=== PATIENT | male | born 1990 | race Caucasian/White ===

== ENCOUNTER 2023-03-26 02:47 | Emergency (ER) | payer MEDICARE, SELFPAY ==
[2023-03-26 02:55] VITALS: BP 127/69; PULSE 86; RESP 16; TEMP 36.6; O2SAT 96; BMI 24.3
--- NOTE | 2023-03-26 03:05 | ED.MALEGU1 ---
HPI - Male Genitourinary General Chief complaint: Urogenital-Male Time Seen by Provider: 03/26/23 02:52 Source: patient Mode of arrival: walk-in Limitations: no limitations History of Present Illness HPI Narrative: the patient presented to us with burning with urination as well as frequency after being exposed to partner who was diagnosed with STD The patient denies any fever or abdominal pain or any other concerns he also had a similar presentation a month ago after being exposed to the same partner Review of systems otherwise negative Related Data Home Medications Medication Instructions Recorded Confirmed venlafaxine 75 mg capsule,extended mg PO 03/26/23 release 24 hr Allergies Allergy/AdvReac Type Severity Reaction Status Date / Time doxycycline Allergy Mild Verified 03/26/23 02:59 Review of Systems ROS Status of ROS 10 or more systems reviewed and unremarkable except as noted in history and below Exam Narrative Exam Narrative: Nurses notes and vital signs reviewed and patient is not hypoxic. General: Well-appearing and in no apparent distress. Skin: Warm, dry, no pallor noted. No rash. Head: Normocephalic, atraumatic. Neck: Supple, non-tender. Eye: Pupils are equal, round and EOMI. No scleral icterus. Ears, Nose, Mouth, and Throat: TM are clear, no nasal mucosal hypertrophy. Oral mucosa is moist, no posterior oropharynx erythema, uvula is mid-line Cardiovascular: Regular Rate and Rhythm without murmur, gallop or rub. Respiratory: No accessory muscle use or respiratory distress. Lungs are clear to auscultation, no wheezing, rales or rhonchi Chest Wall: no tenderness Back: No midline thoracic or lumbar vertebral tenderness. No CVA tenderness Musculoskeletal: normal ROM, no calf or popliteal tenderness, no lower extremity edema/swelling GI: Abdomen is soft, non-distended. Normal bowel sounds. No masses appreciated. No tenderness to palpation. No rebound, guarding, or rigidity noted. Neurological: A&O x4. No cranial nerve dysfunction observed. No truncal ataxia. Moves all extremities. Sensation intact. Psychiatric: Cooperative and interactive. Normal mood and affect. Constitutional Vital Signs - 24 hr 03/26/23 02:55 Temperature 97.9 F Pulse Rate [Monitor] 86 Respiratory Rate 16 Blood Pressure [Right Arm] 127/69 H Pulse Oximetry 96 Oxygen Delivery Method Room Air Course Vital Signs Vital signs: Vital Signs Temperature 97.9 F 03/26/23 02:55 Pulse Rate 86 03/26/23 02:55 Respiratory Rate 16 03/26/23 02:55 Blood Pressure 127/69 H 03/26/23 02:55 Pulse Oximetry 96 03/26/23 02:55 Oxygen Delivery Method Room Air 03/26/23 02:55 Temperature 97.9 F 03/26/23 02:55 Pulse Rate 86 03/26/23 02:55 Respiratory Rate 16 03/26/23 02:55 Blood Pressure 127/69 H 03/26/23 02:55 Pulse Oximetry 96 03/26/23 02:55 Oxygen Delivery Method Room Air 03/26/23 02:55 MDM - Male Genitourinary MDM Narrative Medical decision making narrative: the patient was now is presenting to us with urethritis after being exposed to see the he will be treated due to his history with the ceftriaxone and azithromycin due to ALLERGY to doxycycline The patient is to followup with primary care physician in next 2-3 days or to return to the emergency department should any of the signs or symptoms worsen or new symptoms develop. The patient agrees with the following Diagnosis and Treatment plan and the patient will be discharged home. Discharge Plan Discharge Chief Complaint: Urogenital-Male Clinical Impression: Urethritis Patient Disposition: Home, Self-Care Time of Disposition Decision: 03:25 Mode of Transportation: Private Vehicle Prescriptions / Home Meds: No Action venlafaxine 75 mg capsule,extended release 24hr PO Instructions: Nonspecific Urethritis in Men (ED) Stand Alone Forms: Portal Instructions Referrals: Physician,Non-Staff, MD [Primary Care Provider] - 1 week
[2023-03-26] MEDS: CEFTRIAXONE 500 MG VIAL IM (03:34)
[2023-03-26] MEDS: AZITHROMYCIN 250 MG TABLET 1000 MG PO (03:34)
== END 2023-03-26 03:45 | disposition home or self-care (01) ==
PROVIDERS: Emergency Provider Emergency Medicine
DX: N34.2 Other urethritis (principal)
CPT/HCPCS: 96372; 99284

== ENCOUNTER 2023-05-26 16:47 | Emergency (ER) | payer MEDICARE, SELFPAY ==
[2023-05-26 16:50] VITALS: BP 137/73; PULSE 87; RESP 16; TEMP 36.8; O2SAT 97; BMI 24.0
--- NOTE | 2023-05-26 17:21 | ED.MALEGU1 ---
HPI - Male Genitourinary General Chief complaint: Urogenital-Male Stated complaint: STD? Time Seen by Provider: 05/26/23 16:57 Source: patient Mode of arrival: walk-in Limitations: no limitations History of Present Illness HPI Narrative: patient had a single time recently in which he did not wear a condom, slept with his significant other and now has urethral discharge. he suspects that he has contracted an STD. No groin pain, fever or skin rash. Related Data Home Medications Medication Instructions Recorded Confirmed venlafaxine 75 mg capsule,extended mg PO 03/26/23 release 24 hr Allergies Allergy/AdvReac Type Severity Reaction Status Date / Time doxycycline Allergy Mild Verified 03/26/23 02:59 Exam Narrative Exam Narrative: Nurses notes and vital signs reviewed and patient is not hypoxic. afebrile General: Well-appearing and in no apparent distress. Skin: Warm, dry, no pallor noted. No rash to the groin or genitalia. Eye: Pupils are equal, round and EOMI. No scleral icterus. Cardiovascular: normal peripheral perfusion Respiratory: No accessory muscle use or respiratory distress. GI: Abdomen is soft, non-distended. No inguinal masses appreciated. No tenderness to palpation. No rebound, guarding, or rigidity noted. Genital: Normal appearing male genitalia. No penile or scrotal lesions. No blood or discharge noted at the urethral meatus. Neurological: A&O x4. No truncal ataxia. Moves all extremities. Sensation intact. Psychiatric: Cooperative and interactive. Normal mood and affect. Constitutional Vital Signs, click to edit/add: Last Vital Signs Temp 98.3 F 05/26/23 16:50 Pulse 87 05/26/23 16:50 Resp 16 05/26/23 16:50 BP 137/73 05/26/23 16:50 Pulse Ox 97 05/26/23 16:50 O2 Del Method Room Air 05/26/23 16:50 Course Vital Signs Vital signs: Vital Signs Temperature 98.3 F 05/26/23 16:50 Pulse Rate 87 05/26/23 16:50 Respiratory Rate 16 05/26/23 16:50 Blood Pressure 137/73 05/26/23 16:50 Pulse Oximetry 97 05/26/23 16:50 Oxygen Delivery Method Room Air 05/26/23 16:50 Temperature 98.3 F 05/26/23 16:50 Pulse Rate 87 05/26/23 16:50 Respiratory Rate 16 05/26/23 16:50 Blood Pressure 137/73 05/26/23 16:50 Pulse Oximetry 97 05/26/23 16:50 Oxygen Delivery Method Room Air 05/26/23 16:50 MDM - Male Genitourinary MDM Narrative Medical decision making narrative: I obtained a urethral culture swab and sent to the lab for testing. results will take several days so the patient was prophylactically treated with IM Rocephin and oral azithromycin. He was instructed to avoid intercourse for the next 7 days and encouraged to use a condom moving forward. Discharge Plan Discharge Chief Complaint: Urogenital-Male Clinical Impression: Urethritis Patient Disposition: Home, Self-Care Time of Disposition Decision: 17:25 Prescriptions / Home Meds: No Action venlafaxine 75 mg capsule,extended release 24hr PO Instructions: Sexually Transmitted Diseases (ED), Male Condom Use (ED), Nonspecific Urethritis in Men (ED) Stand Alone Forms: Portal Instructions Referrals: Physician,Non-Staff, MD [Primary Care Provider] - 1 week
[2023-05-26] MEDS: AZITHROMYCIN 250 MG TABLET 1000 MG PO (17:27)
[2023-05-26] MEDS: CEFTRIAXONE 250 MG, WATER FOR INJECTION,STERILE 0.9 ML IM (17:28)
[2023-05-30 08:17] LABS: Neisseria gonorrhoeae, NAA Negative (Negative)
== END 2023-05-26 17:38 | disposition home or self-care (01) ==
PROVIDERS: Emergency Provider Emergency Medicine
DX: N34.2 Other urethritis (principal)
CPT/HCPCS: 87491; 87591; 96374; 99284

== ENCOUNTER 2023-11-17 21:45 | Emergency (ER) | payer MEDICARE, SELFPAY ==
[2023-11-17 21:52] VITALS: BP 121/70; PULSE 102; RESP 18; TEMP 37.4; O2SAT 98; BMI 24.8
--- NOTE | 2023-11-17 21:57 | PC.NURSE ---
Patient reports burining with urination and intermittent penile drainage of clear/white color.
--- NOTE | 2023-11-17 22:15 | ED.MALEGU1 ---
HPI - Male Genitourinary General Chief complaint: Urogenital-Male Stated complaint: POSS STD Time Seen by Provider: 11/17/23 21:58 Source: patient Mode of arrival: walk-in History of Present Illness HPI Narrative: Male presents with urethral pain on urination and urethral discharge for the last 2 days. No fever or vomiting. No sores on the penis or scrotum. No blood in urine. He suspects that his girlfriend is cheating on him. he said that he has had STDs in the past with the same partner. He does not use condoms. Related Data Home Medications Medication Instructions Recorded Confirmed venlafaxine 75 mg capsule,extended 75 mg PO DAILY 03/26/23 11/17/23 release 24 hr Previous Rx's Medication Instructions Recorded azithromycin 250 mg tablet 1,000 mg (4 x 250 mg) PO ONCE #4 11/17/23 tabs Allergies Allergy/AdvReac Type Severity Reaction Status Date / Time doxycycline Allergy Mild Verified 11/17/23 21:51 Exam Narrative Exam Narrative: Nurses notes and vital signs reviewed and patient is not hypoxic. afebrile General: Well-appearing and in no apparent distress. Skin: Warm, dry, no pallor noted. Eye: Pupils are equal, round and EOMI. No scleral icterus. Cardiovascular: Normal peripheral perfusion. Respiratory: No accessory muscle use or respiratory distress. GI: Abdomen is soft, non-distended. Normal bowel sounds. No masses appreciated. No tenderness to palpation. No rebound, guarding, or rigidity noted. Genital: normal male external genitalia. No penile swelling or lesions. No inguinal lymphadenopathy. No urethral laceration, abrasion or discharge on exam. Neurological: A&O x4. No cranial nerve dysfunction observed. No truncal ataxia. Moves all extremities. Sensation intact. Psychiatric: Cooperative and interactive. Normal mood and affect. Constitutional Vital Signs, click to edit/add: Last Vital Signs Temp 99.3 F 11/17/23 21:52 Pulse 102 H 11/17/23 21:52 Resp 18 11/17/23 21:52 BP 121/70 11/17/23 21:52 Pulse Ox 98 11/17/23 21:52 O2 Del Method Room Air 11/17/23 21:52 Course Vital Signs Vital signs: Vital Signs Temperature 99.3 F 11/17/23 21:52 Pulse Rate 102 H 11/17/23 21:52 Respiratory Rate 18 11/17/23 21:52 Blood Pressure 121/70 11/17/23 21:52 Pulse Oximetry 98 11/17/23 21:52 Oxygen Delivery Method Room Air 11/17/23 21:52 Temperature 99.3 F 11/17/23 21:52 Pulse Rate 102 H 11/17/23 21:52 Respiratory Rate 18 11/17/23 21:52 Blood Pressure 121/70 11/17/23 21:52 Pulse Oximetry 98 11/17/23 21:52 Oxygen Delivery Method Room Air 11/17/23 21:52 MDM - Male Genitourinary MDM Narrative Medical decision making narrative: urine obtained by triage nurse - sent to the lab for testing for GC and chlamydia. Patient received IM Rocephin and discharged home with prescription for azithromycin 1gm to be filled in the morning and taken orally. Instructed to not have sex for one week and to use a condom with his partner as this keeps occurring. PCP follow up. Discharge Plan Discharge Chief Complaint: Urogenital-Male Clinical Impression: Potential exposure to STD, Urethritis Patient Disposition: Home, Self-Care Time of Disposition Decision: 22:17 Prescriptions / Home Meds: New azithromycin 250 mg tablet 1,000 mg PO ONCE Qty: 4 0RF Rx Instructions: four 250mg tabs taken orally once No Action venlafaxine 75 mg capsule,extended release 24hr 75 mg PO DAILY Instructions: Sexually Transmitted Diseases (ED) Stand Alone Forms: Portal Instructions Referrals: Physician,Non-Staff, MD [Primary Care Provider] - 1 week
[2023-11-17] MEDS: CEFTRIAXONE 250 MG, WATER FOR INJECTION,STERILE 0.9 ML IM (23:02)
[2023-11-21 01:07] LABS: Neisseria gonorrhoeae, NAA Negative (Negative)
== END 2023-11-17 23:07 | disposition home or self-care (01) ==
PROVIDERS: Emergency Provider Emergency Medicine
DX: N34.2 Other urethritis (principal); Z20.2 Contact with and (suspected) exposure to infections with a predominantly sexual mode of transmission
CPT/HCPCS: 87491; 87591; 96372; 99284; J0696

== ENCOUNTER 2024-05-08 21:20 | Emergency (ER) | payer MEDICARE, SELFPAY ==
--- OUTSIDE RECORDS SUMMARY | 2024-05-08 21:25 | XMS_ITS | CCD ---
Author Organization [facility] Inform ion Partnership [facility] Care Team Providers Care Mail Technician Name Role Phone Conchita Mancia MD Primary Care Provider DR ESTEFANI OCONNELL Primary Care Unavailable BHAKTI PINEDA Attending Unavailable BHAKTI PINEDA Consulting Unavailable BHAKTI PINEDA Admitting Unavailable CONCHITA MANCIA Primary Care Unavailable NAM GARCIA Attending Unavailable Naomi Cortez Primary Care Provide r NO, PHYSICIAN Primary Care Unavailable NIKO MOLINA Attending Unavailable Allergies Allergy Classification Reported Allergen(s) Allergy Type Date of Onset Reaction(s) Facility (3 sources) Doxycycline; Translations: [DOXYCYCLINE] Drug Allergy 0 [facility] (1 source) Doxycycline Drug Allergy [facility] Repository Medications Current Medications Medication Drug Class(es) Dates Sig (Normalized) Sig (Original) ibuprofen 800 mg oral tablet (1 source) Nonsteroidal Anti-inflammatory Drug Start: 09-03-2023 End: 11-28-2023 take 1 tablet by mouth every six hours as needed for pain ibuprofen (MOTRIN) 800 mg tablet Take 1 tablet (800 mg total) by mouth every 6 (six) hours as needed for pain. 30 tablet 0 09/03/2023 11/28/2023 Discontinued ondansetron 4 mg disintegrating oral tablet (1 source) Serotonin-3 Receptor Antagonist Start: 07-31-2022 End: 11-28-2023 take 1 tablet by mouth every eight hours as needed for nausea ondansetron ODT (ZOFRAN ODT) 4 mg disintegrating tablet Dissolve 1 tablet (4 mg total) on tongue every 8 (eight) hours as needed for nausea for up to 12 doses. 12 tablet 0 07/31/2022 11/28/2023 Discontinued 24 hr venlafaxine 75 mg extended release oral capsule (3 sources) Serotonin and Norepinephrine Reuptake Inhibitor Start: 09-02-2021 End: 11-28-2023 take 1 capsule by mouth once daily venlafaxine (EFFEXOR XR) 75 MG extended release capsule Take 1 capsule by mouth daily 30 capsule 0 12/24/2021 01/23/2022 Active Problems Active Problems Problem Classification Problem Date Documented Date Episodic/Chronic Administrative/social admission (1 source) Repeated prescription; Translations: [Encounter for issue of repeat prescription] Episodic Cardiac dysrhythmias (1 source) Palpitations; Translations: [Palpitations] 11-28-2023 Episodic Genitourinary symptoms and ill-defined conditions (4 sources) Urethral discharge, unspecified; Translations: [URETHRAL DISCHARGE UNSPECIFIED] Onset: 02-25-2023 Episodic Immunizations and screening for infectious disease (1 source) Contact with and (suspected) exposure to infections with a predominantly sexual mode of transmission; Translations: [Contact with and (suspected) exposure to infections with a predominantly sexual mode of transmission] Onset: 10-24-2023 Episodic Nonspecific chest pain (1 source) Chest pain; Translations: [Chest pain, unspecified] 11-28-2023 Episodic Other lower respiratory disease (1 source) Dyspnea on exertion; Translations: [Other forms of dyspnea] 11-28-2023 Episodic Substance-related disorders (1 source) Nicotine dependence, cigarettes, uncomplicated; Translations: [NICOTINE DEPEND CIGARETTES UNCOMP] Onset: 02-27-2023 Chronic Urinary tract infections (2 sources) Other urethritis; Translations: [Other urethritis] Onset: 01-21-2024 Episodic Past or Other Problems Problem Classification Problem Date Documented Da te Episodic/Chronic Unclassified (1 source) Onset: 11-28-2023 11-28-2023 Results Test Name Value Interpretation Reference Range Facil ity Chlamydia/GC DNA, Uron 10-25 Chlamydia Probe, Ur Negative Normal NEG [facility] Comment on above: Result Comment: CHLA MYDIA TRACHOMATIS DNA not detected by nucleic acid amplification. This test is intended for medical purposes only and is not valid for the evaluation of suspected sexual abuse or for other forensic purposes. In certain contexts, culture may be required to meet applicable laws and regulations for diagnosis of C. trachomatis and N. gonorrhoeae infections. Per 2014 CDC recommendations, this test does not include confirmation of positive results by an alternative nucleic acid target. Performed By: #### U CGP #### [id number] [place] [address] [employer] Tender: Felice Russ MD Gonorrhea Probe, Ur Negative Normal NEG [facility] Comment on above: Result Comment: NEIS SERIA GONORRHOEAE DNA not detected by nucleic acid amplification. This test is intended for medical purposes only and is not valid for the evaluation of suspected sexual abuse or for other forensic purposes. In certain contexts, culture may be required to meet applicable laws and regulations for diagnosis of C. trachomatis and N. gonorrhoeae infections. Per 2014 CDC recommendations, this test does not include confirmation of positive results by an alternative nucleic acid target. Performed By: #### U CGP #### [id number] [place] [address] [employer] Tender: Felice Russ MD Urinalysis w/ Microon 2023 Bacteria TRACE Abnormal NONE [facility] Comment on above: Performed By: #### U AMIC #### [facility] [address] [place] [address] [address] [place], [place] [id number] [employer] Tender: Niko Garcia MD Bilirubin, SemiQt,Ur Negative Normal NEG [facility] Comment on above: Performed By: #### U AMIC #### [facility] [address] [place] [address] [place] [address] [employer] Tender: Niko Garcia MD Blood, Urine Negative Normal NEG [facility] Comment on above: Performed By: #### U AMIC #### [facility] [address] [place], [place] [id number] [employer] Tender: Niko Garcia MD Clarity (U) Clear Normal CLEAR [facility] Comment on above: Performed By: #### U AMIC #### [facility] [address] [place], [place] [id number] [employer] Tender: Niko Garcia MD Color (U) Yellow Normal YEL [facility] Comment on above: Performed By: #### U AMIC #### [facility] [address] [place] [address] Dr. [place], [place] [id number] [employer] Tender: Niko Garcia MD Epithelial cells LM Ql (Urine sed) None Normal 0-5 [facility] Comment on above: Performed By: #### U AMIC #### [facility] [address] [place] [address] Dr. [place], [place] [id number] [employer] Tender: Niko Garcia MD Glucose Ql (U) Negative Normal NEG [facility] Comment on above: Performed By: #### U AMIC #### [facility] [address] [place] [address] Dr. [place], [place] [id number] [employer] Tender: Niko Garcia MD Ketones Ql (U) Negative Normal NEG [facility] Comment on above: Performed By: #### U AMIC #### [facility] [address] [place] [address] Dr. [place], [place] [phone] [employer] Tender: Niko Garcia MD Leukocyte esterase Test strip Ql (U) Negative Normal NEG [facility] Comment on above: Performed By: #### U AMIC #### [address] [place], [place] [id number] [employer] Tender: Niko Garcia MD Nitrite,Ur Negative Normal NEG [facility] Comment on above: Performed By: #### U AMIC #### [facility] [address] [place] [address] Dr. [place], [place] [id number] [employer] Tender: Niko Garcia MD PH,Ur 6.5 Normal 5.0-9.0 [facility] Comment on above: Performed By: #### U AMIC #### [address] [place] [address] [employer] Tender: Niko Garcia MD Protein Ql (U) Negative Normal NEG [facility] Comment on above: Performed By: #### U AMIC #### [facility] [address] [place] [address] Dr. [place], [place] [id number] [employer] Tender: Niko Garcia MD Spec. [place],Ur 1.020 Normal 1.010-1.020 [facility] Comment on above: Performed By: #### U AMIC #### [facility] [address] [place], [place] [id number] [employer] Tender: Niko Garcia MD Urine RBC's 0 TO 2 Normal 0-2 [facility] Comment on above: Performed By: #### U AMIC #### [facility] [address] [place], [place] [phone] [employer] Tender: Niko Garcia MD Urine WBC's 0 TO 2 Normal 0-5 [facility] Comment on above: Performed By: #### U AMIC #### [facility] [address] [place], [place] [id number] [employer] Tender: Niko Garcia MD Urobilinogen,Ur Normal Normal 0.0-1.0 [facility] Comment on above: Performed By: #### U AMIC #### [facility] [address] [place], [place] [phone] [employer] Tender: Niko Garcia MD CHLAMYDIA/GONOCOCCUS SHANTA (SW AB/URINE/PAPon 02-27-2023 Chlamydia trachomatis, SHANTA Negative Normal Negative [facility] Comment on above: Performed By: #### C T/NGNA #### [facility] [address] [place] [address] Dr. Andrés Fallon Neisseria gonorrhoeae, SHANTA Negative Normal Negative [facility] Comment on above: Performed By: #### C T/NGNA #### [facility] [address] [place] [address] Dr. Andrés Fallon ER URINE PROFILEon 3 Bilirubin Ql (U) Negative Normal NEGATIVE [facility] Comment on above: Performed By: #### U MICRO, ERUR #### [facility] [address] [place] [address] Dr. Andrés Fallon Clarity (U) CLEAR Normal CLEAR [facility] Comment on above: Performed By: #### U MICRO, ERUR #### [facility] [address] [address] [address] Andrés Fallon Color (U) YELLOW Normal YELLOW [facility] Comment on above: Performed By: #### U MICRO, ERUR #### [facility] [address] [address] [address] Andrés VARMAAHD A micrscopic examination will be performed if indicated. Normal [facility] Comment on above: Performed By: #### U MICRO, ERUR #### [facility] [address] [address] [address] Andrés Fallon Glucose Ql (U) Negative Normal NEGATIVE [facility] Comment on above: Performed By: #### U MICRO, ERUR #### [facility] [address] [place] [address] Dr. Andrés Fallon Hemoglobin Ql (U) Negative Normal NEGATIVE [facility] Comment on above: Performed By: #### U MICRO, ERUR #### [facility] [address] [address] [address] Andrés Fallon Ketones Ql (U) Negative Normal NEGATIVE [facility] Comment on above: Performed By: #### U MICRO, ERUR #### [facility] [address] [place] [address] Dr. Andrés Fallon LEUKOCYTES Negative Normal NEGATIVE [facility] Comment on above: Performed By: #### U MICRO, ERUR #### [facility] [address] [address] [address] Andrés Fallon Nitrite Ql (U) Negative Normal NEGATIVE [facility] Comment on above: Performed By: #### U MICRO, ERUR #### [facility] [address] [address] [address] Andrés Fallon pH (U) 6.0 [pH] Normal 5-9 [facility] Comment on above: Performed By: #### U MICRO, ERUR #### [facility] [address] [address] [address] Andrés Fallon SPEC GRAVITY >=1.030 Abnormal 1.005-<=1.025 [facility] Comment on above: Performed By: #### U MICRO, ERUR #### [facility] [address] [place] [address] Dr. Andrés Fallon UA PROTEIN Negative Normal NEGATIVE/ TRACE [facility] Comment on above: Performed By: #### U MICRO, ERUR #### [facility] [address] [place] [address] Dr. Andrés Fallon UR MICRO IND INDICATED Normal [facility] Comment on above: Performed By: #### U MICRO, ERUR #### [facility] [address] [place] [address] Dr. Andrés Fallon Urobilinogen Qn (U) 0.2 {Suzanne'U}/dL Normal 0.2 - 1. 0 [facility] Comment on above: Performed By: #### U MICRO, ERUR #### [facility] [address] [place] [address] Dr. Andrés Fallon URINE MICROSCOPIC ONLYon BACTERIA NONE SEEN Normal NONE SEEN [facility] Comment on above: Performed By: #### U MICRO, ERUR #### [facility] [address] [place] [address] Dr. Andrés Fallon Bacteria identified Cx Nom (U) NOT INDICATED Normal [facility] Comment on above: Performed By: #### U MICRO, ERUR #### [facility] [address] [place] [address] Dr. Andrés Fallon CAST NONE SEEN Normal NONE SEEN [facility] Comment on above: Performed By: #### U MICRO, ERUR #### [facility] [address] [place] [address] Dr. Andrés Fallon Crystals LM Nom (Urine sed) NONE SEEN Normal NONE SEEN [facility] Comment on above: Performed By: #### U MICRO, ERUR #### [facility] [address] [place] [address] Dr. Andrés Fallon Epithelial cells LM Ql (Urine sed) RARE Normal NONE SEEN /RARE [facility] Comment on above: Performed By: #### U MICRO, ERUR #### [facility] [address] [address] [address] Andrés Fallon MUCOUS TRACE Abnormal NONE SEEN [facility] Comment on above: Performed By: #### U MICRO, ERUR #### [facility] [address] [address] [address] Andrés Fallon RBC 0-2 Normal 0-2 [facility] Comment on above: Performed By: #### U MICRO, ERUR #### [facility] [address] [address] [address] Andrés Fallon TRICH NONE SEEN Normal NONE SEEN [facility] Comment on above: Result Comment: RESU LTED PER DR Performed By: #### U MICRO, ERUR #### [facility] [address] [address] [address] Andrés Fallon WBC 2-5 Abnormal NONE SEEN [facility] Comment on above: Performed By: #### U MICRO, ERUR #### [facility] [address] [address] [address] Andrés Fallon Vital Signs Date Time Vital Sign Value Performing Clinician Quincy garcia 11-28-2023 08:43-0500 Body mass index (BMI) [Ratio] 26.92 kg/m2 Naomi Helm APRN-BOOKING AGENT Work Phone: [facility] 11-28-2023 08:43-0500 Body weight 87.54 kg Naomi Helm APRN-BOOKING AGENT Work Phone: [facility] 11-28-2023 08:43-0500 Diastolic blood pressure 62 mm[Hg] aNomi Helm APRN-BOOKING AGENT Work Phone: [facility] 11-28-2023 08:43-0500 Heart rate 56 /min Naomi Helm APRN-BOOKING AGENT Work Phone: [facility] 11-28-2023 08:43-0500 Respiratory rate 16 /min Naomi Helm APRN-BOOKING AGENT Work Phone: [facility] 11-28-2023 08:43-0500 SaO2% (BldA) [Mass fraction] 98 % Naomi Helm CURBING STONECUTTER-BOOKING AGENT [facility] Phone[facility] 11-28-2023 08:43-0500 Systolic blood pressure 110 mm[Hg] Naomi Helm CURBING STONECUTTER-BOOKING AGENT Work Phone[facility] 12-24-2021 11:48-0500 Body height 180.3 cm Conchita Mancia MD Work Phone: [employer] 12-24-2021 11:48-0500 Body mass index (BMI) [Ratio] 23.01 kg/m2 Conchita Mancia MD Work Phone: [employer] 12-24-2021 11:48-0500 Body temperature 97.2 [degF] Conchita Mancia MD Work Phone: [employer] 12-24-2021 11:48-0500 Body weight 74.84 kg Conchita Mancia MD Work Phone: [employer] 12-24-2021 11:48-0500 Diastolic blood pressure 67 mm[Hg] Conchita Mancia MD Work Phone: [employer] 12-24-2021 11:48-0500 Heart rate 61 /min Conchita Mancia MD Work Phone: [employer] 12-24-2021 11:48-0500 Respiratory rate 16 /min Conchita Mancia MD Work Phone: [employer] 12-24-2021 11:48-0500 SaO2% (BldA) [Mass fraction] 98 % Conchita Mancia MD Work Phone: [facility] 12-24-2021 11:48-0500 Systolic blood pressure 111 mm[Hg] Conchita Mancia MD Work Phone: [employer] Encounters Encounter Date Encounter Type Care Provider Facility Start: 01-21-2024 End: 01-21-2024 Emergency department patient visit PHYSICIAN [facility] Start: 11-28-2023 End: 11-28-2023 Office outpatient new 30 minutes Naomi Helm CURBING STONECUTTER-BOOKING AGENT Work Phone: [facility] Comment on above: Palpitations (Primar y Dx); Chest pain, unspecified type; Dyspnea on exertion Start: 10-24-2023 End: 10-24-2023 Emergency department patient visit CONCHITA Meraz EPIFANIO [facility] Start: 02-25-2023 End: 02-25-[address] [facility]CTOR [facility] Facility: Start: 12-24-2021 End: 12-24-2021 Emergency department patient visit Conchita Mancia MD Work Phone: [facility] ED Comment on above: Encounter for medica tion refill (Primary Dx) Plan of Treatment Date Care Activity Detail Author Start: 12-01-2024 End: 12-01-2024 Patient encounter procedure 12/01/2024 10:30 AM EST Office Visit [facility] [address] [place] [id number] Naomi Helm, CURBING STONECUTTER-BOOKING AGENT [address] [place] [address] [facility] Start: 11-28-2024 Adult BMI Follow Up Plan Adult BMI Follow Up Plan [facility] Start: 11-28-2024 Adult BMI Screening Adult BMI Screening [facility] Start: 11-28-2024 Tobacco Screening Tobacco Screening [facility] Start: 12-07-2023 End: 12-07-[address] [facility] Start: 11-28-2023 End: 11-27-2024 CBC W Auto Differential panel - Blood [facility] Work Phone: Comment on above: Expected: 11/28/2023, Expires: Start: 11-28-2023 End: 11-28-2024 Echo complete W/O contrast Echo complete W/O contrast Echocardiography Routine Palpitations Chest pain, unspecified type Dyspnea on exertion Expected: 11/28/2023, Expires: 11/28/2024 [facility] Comment on above: Expected: 11/28/2023, Expires: Start: 11-28-2023 End: 11-28-2024 Holter monitor study Holter monitor 24-48 hour Cardiac Services Routine Palpitations Chest pain, unspecified type Dyspnea on exertion Expected: 11/28/2023, Expires: 11/28/2024 [facility] Comment on above: Expected: 11/28/2023, Expires: Start: 11-28-2023 End: 11-27-2024 Lipid 1996 panel - Serum or Plasma [facility] Comment on above: Expected: 11/28/2023, Expires: Start: 11-28-2023 End: 11-27-2024 Thyroid profile includes TSH FT4 [facility] Comment on above: Expected: 11/28/2023, Expires: Start: 06-15-2023 Influenza vaccination Influenza Vaccine [facility] Start: 06-15-2021 Influenza vaccination Flu vaccine (#1) [facility] Start: 2008 DTaP,Tdap and Td Vaccines (1 - Tdap) DTaP,Tdap and Td Vaccines (1 - Tdap) [facility] Start: 2001 Depression Screening Depression Screening [facility] Start: 1994 COVID-19 Vaccine (1) COVID-19 Vaccine (1) [facility] Start: 1989 Tobacco Counseling Tobacco Counseling [facility] End: 11-27-2024 Comprehensive metabolic 2000 panel - Serum or Plasma Comprehensive metabolic panel Lab Routine Palpitations Chest pain, unspecified type Dyspnea on exertion 1 Occurrences starting 11/28/2023 until 11/27/2024 [facility] Comment on above: 1 Occurrences starting 11/28/2023 until 11/27/2024 Comprehensive metabolic 2000 panel - Serum or Plasma Comprehensive metabolic panel Lab Routine Palpitations Chest pain, unspecified type Dyspnea on exertion 11/28/2023 10:01 AM EST [facility] Payers Date Payer Category Payer Medicare [employer] MEDICARE ADVANTAGE PPO [id number] 2022-Present [phone] [address] [address] [place] [address] [id number] 2021 Medicare [id number] 1989 Unknown [id number] 1989 Unknown [id number] 1989 Unknown [id number] 1960 Medicare [id number] Social History Date Type Detail Facility Start: 12-24-2021 Tobacco smoking stat [facility] Never smoked tobacco [employer] Phone: Start: 12-24-2021 End: 11-28-2023 Tobacco use and exposure Smokeless tobacco non-user [employer] Phone: Start: 12-24-2021 End: 11-28-2023 Alcohol intake Ex-drinker (finding) [employer] Phone: Start: 1990 Sex Assigned At Not on file [facility] Phone: Exposure to SARS-CoV -2 (event) Not sure [employer] Phone: Start: 11-28-2023 Tobacco smoking stat [facility] Smokes tobacco daily [facility] History of tobacco use Tobacco U se Types Packs/Day Years Used Date Smoking Tobacco: Every Day Vaping/E-cigarettes Smokeless Tobacco: Never [facility] Start: 11-02-2020 End: 11-28-2023 History of Social function [facility] Start: 11-02-2020 End: 11-28-2023 Tobacco use panel [facility] Childcare Unknown [facility] History of Present illness Narrative 11-28-2023 Naomi Helm APRN-BOOKING AGENT - 11/28/2023 8:30 AM EST Note Date & Type Note Facility 11-28-2023 History of Present illness Narrative Images from the original note were not included. [id number] [place] [address] SUBJECTIVE: Patient ID: Shantelle Hooks is a 33 y.o. male. Patient presents to the office as a new patient. He has been having palpitations, and shortness of breath when he works out (swimming) for the past seven months. At times he is just sitting watching tv or playing video games it can come on. Does have a family history of heart disease. His brother had cardiomyopathy and was genetically tested but it is through his father's side and they have different dads. Mother's side has family history of heart disease and stents. His mother passed from pancreatic cancer. New Patient Associated symptoms include chest pain. Pertinent negatives include no abdominal pain, arthralgias, congestion, coughing, fatigue, fever, joint swelling, nausea, neck pain, numbness, rash, sore throat, vomiting or weakness. The following portions of the patient's history were reviewed and updated as appropriate: allergies, current medications, past family history, past medical history, past social history, past surgical history and problem list. REVIEW OF SYSTEMS: Review of Systems Constitutional: Negative for fatigue, fever and unexpected weight change. HENT: Negative for congestion, ear pain, sinus pressure, sinus pain and sore throat. Eyes: Negative for photophobia, pain, discharge and visual disturbance. Respiratory: Positive for shortness of breath. Negative for cough. Cardiovascular: Positive for chest pain and palpitations. Negative for leg swelling. Gastrointestinal: Negative for abdominal pain, diarrhea, nausea and vomiting. Endocrine: Negative for polydipsia, polyphagia and polyuria. Genitourinary: Negative for difficulty urinating, frequency, hematuria and urgency. Musculoskeletal: Negative for arthralgias, gait problem, joint swelling and neck pain. Skin: Negative for pallor and rash. Neurological: Negative for dizziness, weakness, light-headedness and numbness. Psychiatric/Behavioral: Negative for sleep disturbance. The patient is not nervous/anxious. PHYSICAL EXAMINATION: Vitals: 11/28/23 0843 BP: 110/62 Pulse: 56 Resp: 16 SpO2: 98% Weight: 87.5 kg (193 lb) Physical Exam Constitutional: Appearance: He is well-developed. HENT: Head: Normocephalic and atraumatic. Right Ear: Tympanic membrane, ear canal and external ear normal. Left Ear: Tympanic membrane, ear canal and external ear normal. Eyes: Conjunctiva/sclera: Conjunctivae normal. Pupils: Pupils are equal, round, and reactive to light. Cardiovascular: Rate and Rhythm: Normal rate and regular rhythm. Heart sounds: Normal heart sounds. Pulmonary: Effort: Pulmonary effort is normal. Breath sounds: Normal breath sounds. Musculoskeletal: Cervical back: Normal range of motion. Skin: General: Skin is warm and dry. Neurological: Mental Status: He is alert and oriented to person, place, and time. Psychiatric: Mood and Affect: Mood normal. ASSESSMENT/PLAN: Shantelle was seen today for new patient. Diagnoses and all orders for this visit: Palpitations - CBC auto differential; Future - Comprehensive metabolic panel; Future - Thyroid profile includes TSH FT4; Future - Lipid profile; Future - ECG 12 lead; Future - Holter monitor 24-48 hour; Future - Echo complete W/O contrast; Future Chest pain, unspecified type - CBC auto differential; Future - Comprehensive metabolic panel; Future - Thyroid profile includes TSH FT4; Future - Lipid profile; Future - ECG 12 lead; Future - Holter monitor 24-48 hour; Future - Echo complete W/O contrast; Future Dyspnea on exertion - CBC auto differential; Future - Comprehensive metabolic panel; Future - Thyroid profile includes TSH FT4; Future - Lipid profile; Future - ECG 12 lead; Future - Holter monitor 24-48 hour; Future - Echo complete W/O contrast; Future Follow-up: Cbc, cmp, lipid profile, thyroid profile EKG Echo and holter as well Will call with results May need possible cardiology appointment due to family history Patient noted to have elevated BMI and the following intervention(s) were applied: encouragement to exercise. LUCIA Zuniga 11/28/23 0901 documented in this encounter [facility] Evaluation note Note Date & Type Note Facility Evaluation note Diagnosis Encounter for medication refill- Primary Issue of repeat prescriptions documented in this encounter [employer] Phone: Evaluation note Note Date & Type Note Facility Evaluation note Diagnosis Palpitations- Primary Chest pain, unspecified type Dyspnea on exertion Other dyspnea and respiratory abnormality documented in this encounter [facility] Discharge instructions InstructionsAttachments Note Date & Type Note Facility Hospital Discharge instructions Yeni Mejias APRN - CNP - 12/24/2021 Take medication as prescribed. Follow-up with your PCP within 2 weeks for reevaluation of your need for Effexor and for represcribing. Do not break the capsules in half to take. Increase your fluid intake. Return for increased pain, fevers, difficulty breathing, vomiting or any new or worsening signs or symptoms. The following attachments cannot be sent through Care Everywhere.Medication Refill (Romanian)documented in this encounter [employer] Phone: Instructions Attachments Note Date & Type Note Facility Instructions The following attachments cannot be sent through Care Everywhere.Palpitations (Romanian)documented in this encounter [facility] Summary Purpose Family History No Family History Records FoundNo Family History Records FoundNo Family History Records Found Advance Directives No Advanced Directives Records FoundNo Advanced Directives Records FoundNo Advanced Directives Records Found Reason for Referral Specialty Diagnoses / Procedures Referred By Contac t Referred To Contact Diagnoses Palpitations Chest pain, unspecified type Dyspnea on exertion Procedures Echo complete W/O contrast [place] [address] [facility] [address] [place] [address] Phone: [phone] Referral ID Status Reason Start Date Expiration Date V isits Requested Visits Authorized [id number] Pending Review 11/28/2023 11/27/2024 1 1 Specialty Diagnoses / Procedures Referred By Contac t Referred To Contact Diagnoses Palpitations Chest pain, unspecified type Dyspnea on exertion Procedures Holter monitor 24-48 hour Naomi Helm APRN-BOOKING AGENT [address] [place] [address] [facility] [address] [place] [address] Phone: [phone] Referral ID Status Reason Start Date Expiration Date V isits Requested Visits Authorized [id number] Pending Review 11/28/2023 11/27/2024 1 1 Specialty Diagnoses / Procedures Referred By Marbin pickering Referred To Contact Diagnoses Palpitations Chest pain, unspecified type Dyspnea on exertion Procedures ECG 12 lead Naomi Helm APRN-CNP [address] [place] [address] Referral ID Status Reason Start Date Expiration Date V isits Requested Visits Authorized [id number] Pending Review 11/28/2023 11/27/2024 1 1 Additional Source Comments Reason for Visit (unrecogniz ed section and content) Reason Comments Medication Refill effexor XR 75mg caps ules ran out; has been breaking them in half Reason Comments New Patient Ordered Prescriptions (unrec ognized section and content) Prescription Sig Dispensed Refills Start Date End Da te venlafaxine (EFFEXOR XR) 75 MG extended release capsule Take 1 capsule by mouth daily 30 capsule 0 12/24/2021 01/23/2022 Care Teams (unrecognized sec tion and content) Mail Technician Relationship Specialty Start Date End Date Conchita Mancia MD [address] [place] [address] PCP - General Psychiatry 12/24/21 Mail Technician Relationship Specialty Start Date End Date Naomi Helm APRN-BOOKING AGENT [address] [place] [address] PCP - General Family Medicine 11/28/23 (unrecognized sect ion and content) No Status Records FoundNo Status Records FoundNo Status Records Found INFORMATION SOURCE (unrecogn ized section and content) DATE CREATED AUTHOR 02/28/2023 [facility] DATE CREATED AUTHOR AUTHOR'S ORGANIZ ATION 10/26/2023 [facility] DATE CREATED AUTHOR AUTHOR'S ORGANIZ ATION 04/11/2024 [facility] FOR RECORDS PERTAINING TO PATIENTS WHO ARE OR HAVE BEEN ENROLLED IN A CHEMICAL DEPENDENCY/SUBSTANCEABUSE PROGRAM, SOME INFORMATION MAY BE OMITTED. This clinical summary was aggregated from multiple sources. Caution should be exercised in using it in the provision of clinical care. This summary normalizes information from multiple sources, and as a consequence, information in this document may materially change the coding, format and clinical context of patient data. In addition, data may be omitted in some cases. CLINICAL DECISIONS SHOULD BE BASED ON THE PRIMARY CLINICAL RECORDS. [facility] [employer] [facility]. provides no warranty or guarantee of the accuracy or completeness of information in this document.
[2024-05-08 21:27] VITALS: BP 134/69; PULSE 82; TEMP 37.1; O2SAT 100; BMI 26.8
--- NOTE | 2024-05-08 21:44 | XR_ITS ---
The [address] [address] Patient Name: SHANTELLE HOOKS MRN: [id number] date: 1990 Sex: M Assigned Patient Location: ER Current Patient Location: ER Accession/Order Number: [id number] Exam Date: 05/08/2024 21:48 Report Date: 05/08/2024 22:54 At the request of: BÁRBARA MARKER Procedure: XR soft tissue neck EXAM: XR soft tissue neck HISTORY: difficulty swallowing . Patient sneezed earlier today and felt a pop in the right side of jaw. Now has ear and throat pain on the right side. COMPARISON: None. TECHNIQUE: AP and lateral soft tissue neck x-rays. FINDINGS: There is a widely patent unremarkable airway, without foreign body. The epiglottis and prevertebral soft tissues are unremarkable. No soft tissue emphysema is seen. Paranasal sinuses appear clear. Several dental fillings are noted. No acute osseous abnormality is identified. XR/XR soft tissue neck IMPRESSION: Unremarkable airway and neck soft tissues. If indicated, soft tissue neck CT scan could further evaluate. Electronically authenticated by: MYRTLE MARTIN Date: 05/08/2024 22:54
--- NOTE | 2024-05-08 22:11 | PC.NURSE ---
patient not having dental pain, but jaw pain. He had a pop in his jaw earlier today and since then has had pain in his jaw, ear and throat. He states a history or right ear pain and TMJ and is supposed to be seeing an ENT for this soon. 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
[2024-05-08 22:12] LABS: Internal Control Within Normal Limits; Strep A Antigen Screen Negative
[2024-05-08 22:13] VITALS: O2SAT 100
--- NOTE | 2024-05-08 22:25 | ED_ITS ---
HPI - Dental/Oral General Chief complaint: Dental/Oral Stated complaint: DENTAL JAW Time Seen by Provider: 05/08/24 21:31 Source: patient Mode of arrival: walk-in Limitations: no limitations History of Present Illness HPI Narrative: This 33-year-old male who states he has had TMJ for the past 2 years presents for evaluation of a popping sensation in his right ear and now is statically sound in his right ear that started earlier today. He states he has discomfort radiating into his throat and neck and feels like he is having difficulty swallowing. He denies any drainage from his ear. He does not actually have a sore throat. He states he has an appointment in May with an ENT in [place] to evaluate his TMJ. He denies any chest pain or shortness of breath. He has not had a fever. He is speaking complete sentences without difficulty. He states it hurts in his throat when he tries to use his vape pen or swallow. Related Data Home Medications ?Medication ?Instructions ?Recorded ?Confirmed venlafaxine 75 mg capsule,extended 75 mg PO DAILY 03/26/23 11/17/23 release 24 hr Allergies Allergy/AdvReac Type Severity Reaction Status Date / Time doxycycline Allergy Mild shortness Verified 05/08/24 21:31 of breath Review of Systems ROS Status of ROS 10 or more systems reviewed and unremark able except as noted in history and below Exam Narrative Exam Narrative: Vital signs and Nursing Notes reviewed: Patient is afebrile with a normal pulse, blood pressure is minimally elevated at 134/69, he is not hypoxic with pulse ox of 100% on room air General: Awake, alert, oriented, no acute distress, lying comfortably on the stretcher HEENT: Normocephalic atraumatic, mucous membranes are moist and pink, eyes are clear, normal conjunctiva, vision is grossly intact, posterior pharynx is normal in appearance. There is an effusion behind the right tympanic membrane with mild bulging of the membrane. There is no exudate or sign of otitis externa. There is no mastoid tenderness. Posterior pharynx is normal in appearance without peritonsillar abscess, exudate or any swelling of the tongue, uvula or pharyngeal soft tissues. There is no pooling of secretions, there is no trismus or drooling. Speech is clear Neck: Supple, trachea is midline and freely mobile. I do not appreciate any anterior posterior cervical lymphadenopathy. No stridor noted Chest: Lungs are clear to auscultation with good air entry, there is no wheezing rhonchi or rales appreciated no accessory muscle use, patient is speaking in complete sentences-no chest wall tenderness to palpation CVS: Regular rate and rhythm S1-S2, no murmurs rubs or gallops, pulses are brisk and equal bilaterally ABD: Soft, nondistended, nontender, no rebound guarding or rigidity, bowel sounds are normal, no pulsatile masses appreciated Extremities: Moving all extremities, no lower extremity tenderness or swelling noted, negative Homans' sign, pulses are brisk and equal bilaterally Skin: Normal in appearance without rash,pallor, petechiae or purpura Neuro: No focal deficits Constitutional Vital Signs, click to edit/add: Last Vital Signs Temp 98.7 F 05/08/24 21:27 Pulse 82 05/08/24 21:27 Resp 18 05/08/24 21:27 BP 134/69 05/08/24 21:27 Pulse Ox 100 05/08/24 22:13 O2 Del Method Room Air 05/08/24 22:13 Course Vital Signs Vital signs: Vital Signs Temperature 98.7 F 05/08/24 21:27 Pulse Rate 82 05/08/24 21:27 Respiratory Rate 18 05/08/24 21:27 Blood Pressure 134/69 05/08/24 21:27 Pulse Oximetry 100 05/08/24 21:27 Oxygen Delivery Method Room Air 05/08/24 21:27 Temperature 98.7 F 05/08/24 21:27 Pulse Rate 82 05/08/24 21:27 Respiratory Rate 18 05/08/24 21:27 Blood Pressure 134/69 05/08/24 21:27 Pulse Oximetry 100 05/08/24 22:13 Oxygen Delivery Method Room Air 05/08/24 22:13 MDM - Dental/Oral MDM Narrative Medical decision making narrative: This 33-year-old male who states that he has TMJ and is scheduled to see an ENT in the near future in [facility] presents for evaluation of discomfort in the right ear with a popping sound and then a statically sound that started earlier in the day. He states he has pain that radiates down into his throat. He has not had a fever. His HEENT exam was benign with the exception of a serous otitis media behind the right tympanic membrane. Strep testing is negative and x-ray of the soft tissues of the neck was normal. He was given a dose of amoxicillin in the emergency department and discharged home with a prescription for amoxicillin. Encouraged him to drink plenty of fluids and buy [id number] Mucinex to help drain the fluid behind his right ear. Medical Records Medical records narrative: The [address] [address] XRay Report Signed Patient: SHANTELLE HOOKS MR#: [id number] : 1990 Acct:[id number] Age/Sex: 33 / M ADM Date: 05/08/24 Loc: ER Attending Dr: Ordering Physician: Bárbara Olson Date of Service: 05/08/24 Procedure(s): XR soft tissue neck Accession Number(s): [id number] cc: Bárbara Olson; Physician,Non-Staff M.D.~ The [address] [address] Patient Name: SHANTELLE HOOKS MRN: [id number] date: 1990 Sex: M Assigned Patient Location: ER Current Patient Location: ER Accession/Order Number: [id number] Exam Date: 05/08/2024 21:48 Report Date: 05/08/2024 22:54 At the request of: BÁRBARA OLSON Procedure: XR soft tissue neck EXAM: XR soft tissue neck HISTORY: difficulty swallowing . Patient sneezed earlier today and felt a pop in the right side of jaw. Now has ear and throat pain on the right side. COMPARISON: None. TECHNIQUE: AP and lateral soft tissue neck x-rays. FINDINGS: There is a widely patent unremarkable airway, without foreign body. The epiglottis and prevertebral soft tissues are unremarkable. No soft tissue emphysema is seen. Paranasal sinuses appear clear. Several dental fillings are noted. No acute osseous abnormality is identified. XR/XR soft tissue neck IMPRESSION: Unremarkable airway and neck soft tissues. If indicated, soft tissue neck CT scan could further evaluate. Electronically authenticated by: MYRTLE MARTIN Date: 05/08/2024 22:54 Lab Data Labs: Lab Results 05/08/24 Range/Units 22:00 Streptococcus Screen Negative Discharge Plan Discharge Stand Alone Forms: Portal Instructions Chief Complaint: Dental/Oral Clinical Impression: Acute serous otitis media Patient Disposition: Home, Self-Care Time of Disposition Decision: 23:13 Condition: Good Prescriptions / Home Meds: No Action venlafaxine 75 mg capsule,extended release 24hr 75 mg PO DAILY Print Language: Serbian Instructions: Fluid In The Ear (Serous Otitis Media) (ED) Referrals: Physician,Non-Staff, MD [Primary Care Provider] - 1 week Discharge Date/Time: 05/08/24 23:33
[2024-05-08] MEDS: AMOXICILLIN 500 MG CAPSULE PO (23:23)
== END 2024-05-08 23:33 | disposition home or self-care (01) ==
PROVIDERS: Emergency Provider Emergency Medicine
DX: H65.01 Acute serous otitis media, right ear (principal); M26.609 Unspecified temporomandibular joint disorder, unspecified side
CPT/HCPCS: 70360; 87070; 87880; 99284

== ENCOUNTER 2024-10-01 21:46 | Emergency (ER) | payer MEDICARE, SELFPAY ==
[2024-10-01 21:48] VITALS: BP 139/68; PULSE 93; TEMP 36.9; O2SAT 99; BMI 25.4
--- OUTSIDE RECORDS SUMMARY | 2024-10-01 21:50 | XMS_ITS | CCD ---
Author Organization [facility] Inform ion [facility] Care Team Providers Care Kier Pleater Name Role Phone Conchita Mancia MD [facility] Primary Care Unavailable BHAKTI PINEDA Attending Unavailable BHAKTI PINEDA Consulting Unavailable BHAKTI PINEDA Admitting Unavailable CONCHITA MANCIA Primary Care Unavailable NAM GARCIA Attending Unavailable Cherry Cortez Primary Care Provide r NO, PHYSICIAN Primary Care Unavailable NIKO MOLINA Attending Unavailable EREN SHEA Attending Unavailable CHERRY HELM Referring Unavailable Allergies Allergy Classification Reported Allergen(s) Allergy Type Date of Onset Reaction(s) Facility (3 sources) Doxycycline; Translations: [DOXYCYCLINE] Drug Allergy 0 [facility] (1 source) Doxycycline Drug Allergy [facility] Repository Medications Current Medications Medication Drug Class(es) [...] 10-25 Chlamydia Probe, Ur Negative Normal NEG [facility] Comment on above: Result Comment: CHLA MYDIA [...] target. Performed By: #### U CGP #### [id number] [place], [place] [id number] Track Repair Laborer: Felice Russ MD Gonorrhea Probe, Ur Negative Normal NEG [facility] Comment on above: Result Comment: NEIS SERIA [...] target. Performed By: #### U CGP #### [address] [address] Track Repair Laborer: Felice Russ MD Urinalysis w/ Microon 2023 Bacteria TRACE Abnormal NONE [facility] Comment on above: Performed By: #### U AMIC #### [facility] [address] [place] [address] Track Repair Laborer: Niko Garcia MD Bilirubin, SemiQt,Ur Negative Normal NEG [facility] Comment on above: Performed By: #### U AMIC #### [facility] [address] [place] [address] Track Repair Laborer: Niko Garcia MD Blood, Urine Negative Normal NEG [facility] Comment on above: Performed By: #### U AMIC #### [facility] [address] [place] [address] Track Repair Laborer: Niko Garcia MD Clarity (U) Clear Normal CLEAR [facility] Comment on above: Performed By: #### U AMIC #### [facility] [address] [place] [address] Track Repair Laborer: Niko Garcia MD Color (U) Yellow Normal YEL [facility] Comment on above: Performed By: #### U AMIC #### [facility] [address] [place] [address] [place], [place] [id number] Track Repair Laborer: Niko Garcia MD Epithelial cells LM Ql (Urine sed) None Normal 0-5 [facility] Comment on above: Performed By: #### U AMIC #### [facility] [address] [place] [address] Dr[place], [place] [id number] Track Repair Laborer: Niko Garcia MD Glucose Ql (U) Negative Normal NEG [facility] in Hospital Comment on above: Performed By: #### U AMIC #### [facility] [address] [place] [address] Dr[place], [place] [id number] Track Repair Laborer: Niko Garcia MD Ketones Ql (U) Negative Normal NEG [facility] in Hospital Comment on above: Performed By: #### U AMIC #### [facility] [address] [place] [address] Dr[place], [place] [id number] Track Repair Laborer: Niko Garcia MD Leukocyte esterase Test strip Ql (U) Negative Normal NEG [facility] Comment on above: Performed By: #### U AMIC #### [address] [place], [place] [id number] Track Repair Laborer: Niko Garcia MD Nitrite,Ur Negative Normal NEG [facility] Comment on above: Performed By: #### U AMIC #### [facility] [address] [place] [address] Dr[place], [place] [id number] Track Repair Laborer: Niko Garcia MD PH,Ur 6.5 Normal 5.0-9.0 [facility] Comment on above: Performed By: #### U AMIC #### [facility] [address] [place] [address] Dr[place], [place] [id number] Track Repair Laborer: Niko Garcia MD Protein Ql (U) Negative Normal NEG [facility] in Hospital Comment on above: Performed By: #### U AMIC #### [facility] [address] [place], [place] [id number] Track Repair Laborer: Niko Garcia MD Spec. Gilliam,Ur 1.020 Normal 1.010-1.020 [facility] Comment on above: Performed By: #### U AMIC #### [facility] [address] [place] [address] Track Repair Laborer: Niko Garcia MD Urine RBC's 0 TO 2 Normal 0-2 [facility] Comment on above: Performed By: #### U AMIC #### [facility] [address] [place] [address] Track Repair Laborer: Niko Garcia MD Urine WBC's 0 TO 2 Normal 0-5 [facility] Comment on above: Performed By: #### U AMIC #### [facility] [address] [place] [address] Track Repair Laborer: Niko Garcia MD Urobilinogen,Ur Normal Normal 0.0-1.0 [facility] Comment on above: Performed By: #### U AMIC #### [facility] [address] [place], [place] [id number] Track Repair Laborer: Niko Garcia MD CHLAMYDIA/GONOCOCCUS SHANTA ( AB/URINE/PAPon 02-27-2023 Chlamydia trachomatis, SHANTA Negative Normal Negative [facility] Comment on above: Performed By: #### C T/NGNA #### [facility] [address] [address] [address] Andrés Fallon Neisseria gonorrhoeae, SHANTA Negative Normal Negative [facility] Comment on above: Performed By: #### C T/NGNA #### [facility] [address] [address] [address] Andrés Fallon ER URINE PROFILEon 3 Bilirubin Ql (U) Negative Normal NEGATIVE [facility] Comment on above: Performed By: #### U MICRO, ERUR #### [facility] [address] [address] [address] Andrés Fallon Clarity (U) CLEAR Normal CLEAR [facility] Comment on above: Performed By: #### U MICRO, ERUR #### [facility] [address] [address] [address] Andrés Fallon Color (U) YELLOW Normal YELLOW [facility] Comment on above: Performed By: #### U MICRO, ERUR #### [facility] [address] [address] [address] Andrés Fallon ERUAHD A micrscopic examination will be performed if indicated. Normal [facility] Comment on above: Performed By: #### U MICRO, ERUR #### [facility] [address] [address] [address] Andrés Fallon Glucose Ql (U) Negative Normal NEGATIVE [facility] Comment on above: Performed By: #### U MICRO, ERUR #### [facility] [address] [address] [address] Andrés Fallon Hemoglobin Ql (U) Negative Normal NEGATIVE [facility] Comment on above: Performed By: #### U MICRO, ERUR #### [facility] [address] [address] [address] Andrés Fallon Ketones Ql (U) Negative Normal NEGATIVE [facility] Comment on above: Performed By: #### U MICRO, ERUR #### [facility] [address] [address] [address] Andrés Fallon LEUKOCYTES Negative Normal NEGATIVE [facility] Comment on above: Performed By: #### U MICRO, ERUR #### [facility] [address] [address] [address] Andrés Fallon Nitrite Ql (U) Negative Normal NEGATIVE [facility] Comment on above: Performed By: #### U MICRO, ERUR #### [facility] [address] [place] [address] Dr. Andrés Fallon pH (U) 6.0 [pH] Normal 5-9 [facility] Comment on above: Performed By: #### U MICRO, ERUR #### [facility] [address] [address] [address] Andrés Fallon SPEC GRAVITY >=1.030 Abnormal 1.005-<=1.025 [facility] Comment on above: Performed By: #### U MICRO, ERUR #### [facility] [address] [address] [address] Andrés Fallon UA PROTEIN Negative Normal NEGATIVE/ TRACE [facility] Comment on above: Performed By: #### U MICRO, ERUR #### [facility] [address] [place] [address] Dr. Andrés Fallon UR MICRO IND INDICATED Normal [facility] Comment on above: Performed By: #### U MICRO, ERUR #### [facility] [address] [place] [address] Dr. Andrés Fallon Urobilinogen Qn (U) 0.2 {Suzanne'U}/dL Normal 0.2 - 1. 0 [facility] Comment on above: Performed By: #### U MICRO, ERUR #### [facility] [address] [place] [address] Dr. Andrés Fallon URINE MICROSCOPIC ONLYon BACTERIA NONE SEEN Normal NONE SEEN [facility] Comment on above: Performed By: #### U MICRO, ERUR #### [facility] [address] [place] [address] Dr. Andrés Fallon Bacteria identified Cx Nom (U) NOT INDICATED Normal [facility] Comment on above: Performed By: #### U MICRO, ERUR #### [facility] [address] [place] [address] Dr. Andrés Fallon CAST NONE SEEN Normal NONE SEEN [facility] Comment on above: Performed By: #### U MICRO, ERUR #### [facility] [address] [place] [address] Dr. Andrés Fallon Crystals LM Nom (Urine sed) NONE SEEN Normal NONE SEEN [facility] Comment on above: Performed By: #### U MICRO, ERUR #### [facility] [address] [place] [address] Dr. Andrés Fallon Epithelial cells LM Ql (Urine sed) RARE Normal NONE SEEN /RARE [facility] Comment on above: Performed By: #### U MICRO, ERUR #### [facility] [address] [address] [address] Andrés Fallon MUCOUS TRACE Abnormal NONE SEEN [facility] Comment on above: Performed By: #### U MICRO, ERUR #### [facility] [address] [address] [address] Andrés Fallon RBC 0-2 Normal 0-2 [facility] Comment on above: Performed By: #### U MICRO, ERUR #### [facility] [address] [address] [address] Andrés Fallon TRICH NONE SEEN Normal NONE SEEN [facility] Comment on above: Result Comment: RESU LTED PER DR Performed By: #### U MICRO, ERUR #### [facility] [address] [address] [address] Andrés Fallon WBC 2-5 Abnormal NONE SEEN [facility] Comment on above: Performed By: #### U MICRO, ERUR #### [facility] [address] [address] [address] Andrés Fallon Vital Signs Date Time Vital Sign Value Performing Clinician Quincy garcia 11-28-2023 08:43-0500 Body mass index (BMI) [Ratio] 26.92 kg/m2 Cherry Helm APRN-FINANCIAL SALES CONSULTANT Work Phone: [facility] 11-28-2023 08:43-0500 Body weight 87.54 kg Cherry Helm APRN-FINANCIAL SALES CONSULTANT Work Phone: [facility] 11-28-2023 08:43-0500 Diastolic blood pressure 62 mm[Hg] Cherry Helm APRN-FINANCIAL SALES CONSULTANT Work Phone: [facility] 11-28-2023 08:43-0500 Heart rate 56 /min Cherry Helm APRN-FINANCIAL SALES CONSULTANT Work Phone: [facility] 11-28-2023 08:43-0500 Respiratory rate 16 /min Cherry Helm COMPOTYPE OPERATOR-FINANCIAL SALES CONSULTANT [facility] 11-28-2023 08:43-0500 SaO2% (BldA) [Mass fraction] 98 % Cherry Helm COMPOTYPE OPERATOR-FINANCIAL SALES CONSULTANT [facility] 11-28-2023 08:43-0500 Systolic blood pressure 110 mm[Hg] Cherry Helm COMPOTYPE OPERATOR-FINANCIAL SALES CONSULTANT [facility] 12-24-2021 11:48-0500 Body height 180.3 cm Conchita Mancia MD Work Phone: [employer] 12-24-2021 11:48-0500 Body mass index (BMI) [Ratio] 23.01 kg/m2 Conchita Mancia MD Work Phone: [employer] 12-24-2021 11:48-0500 Body temperature 97.2 [degF] Conchita Mancia MD Work Phone: [employer] 12-24-2021 11:48-0500 Body weight 74.84 kg Conchita Mancia MD Work Phone: [employer] [facility] 12-24-2021 11:48-0500 Diastolic blood pressure 67 mm[Hg] Conchita Mancia MD Work Phone: [employer] 12-24-2021 11:48-0500 Heart rate 61 /min Conchita Mancia MD Work Phone: [employer] 12-24-2021 11:48-0500 Respiratory rate 16 /min Conchita Mancia MD Work Phone: [employer] 12-24-2021 11:48-0500 SaO2% (BldA) [Mass fraction] 98 % Conchita Mancia MD Work Phone: [employer] 12-24-2021 11:48-0500 Systolic blood pressure 111 mm[Hg] Conchita Mancia MD Work Phone: [employer] Encounters Encounter Date Encounter Type Care Provider Facility Start: 05-21-2024 End: 05-21-2024 ambulatory EREN SHAE Not Available Start: 01-21-2024 End: 01-21-2024 Emergency department patient visit PHYSICIAN PEREZ [facility] Start: 11-28-2023 End: 11-28-2023 Office outpatient new 30 minutes Cherry Helm COMPOTYPE OPERATOR-FINANCIAL SALES CONSULTANT Work Phone: [facility] Comment on above: Palpitations (Primar y Dx); Chest pain, unspecified type; Dyspnea on exertion Start: 10-24-2023 End: 10-24-2023 Emergency department patient visit CONCHITA Mer[facility] Start: 02-25-2023 End: 02-25-[address] [facility] Facility: Start: 12-24-2021 End: 12-24-2021 Emergency department patient visit Conchita Mancia MD Work Phone: [facility] ED Comment on above: Encounter for medica tion refill (Primary Dx) Plan of Treatment Date Care Activity Detail Author Start: 12-01-2024 End: 12-01-2024 Patient encounter procedure 12/01/2024 10:30 AM EST Office Visit [facility] [address] [place] [id number] Cherry Helm APRN-CNP [address] [place] [address] [facility] Start: 11-28-2024 Adult BMI Follow Up Plan Adult BMI Follow Up Plan [facility] Start: 11-28-2024 Adult BMI Screening Adult BMI Screening [facility] Start: 11-28-2024 Tobacco Screening Tobacco Screening [facility] Start: 12-07-2023 End: 12-07-2023 Patient encounter procedure [facility] Start: 11-28-2023 End: 11-27-2024 CBC W Auto Differential panel - Blood [facility] Work Phone: Comment on above: Expected: 11/28/2023, Expires: Start: 11-28-2023 End: 11-28-2024 Echo complete W/O contrast Echo complete W/O contrast Echocardiography Routine Palpitations Chest pain, unspecified type Dyspnea on exertion Expected: 11/28/2023, Expires: 11/28/2024 [facility] Comment on above: Expected: 11/28/2023, Expires: Start: 11-28-2023 End: 11-28-2024 Holter monitor study Holter monitor 24-48 hour [facility] Services Routine Palpitations Chest pain, unspecified type Dyspnea on exertion Expected: 11/28/2023, Expires: 11/28/2024 [facility] Comment on above: Expected: 11/28/2023, Expires: Start: 11-28-2023 End: 11-27-2024 Lipid 1996 panel - Serum or Plasma [facility] Comment on above: Expected: 11/28/2023, Expires: Start: 11-28-2023 End: 11-27-2024 Thyroid profile includes TSH FT4 [facility] Comment on above: Expected: 11/28/2023, Expires: Start: 06-15-2023 Influenza vaccination Influenza Vaccine [facility] Start: 06-15-2021 Influenza vaccination Flu vaccine (#1) [facility] Start: 2008 DTaP,Tdap and Td Vaccines (1 - Tdap) DTaP,Tdap and Td Vaccines (1 - Tdap) [facility] Start: 2001 Depression Screening Depression Screening [facility] Start: 1994 COVID-19 Vaccine (1) COVID-19 Vaccine (1) [facility] Start: 1989 Tobacco Counseling Tobacco Counseling [facility] End: 11-27-2024 Comprehensive metabolic 2000 panel - Serum or Plasma Comprehensive metabolic panel Lab Routine Palpitations Chest pain, unspecified type Dyspnea on exertion 1 Occurrences starting 11/28/2023 until 11/27/2024 [facility] Comment on above: 1 Occurrences starting 11/28/2023 until 11/27/2024 Comprehensive metabolic 2000 panel - Serum or Plasma Comprehensive metabolic panel Lab Routine Palpitations Chest pain, unspecified type Dyspnea on exertion 11/28/2023 10:01 AM EST [facility] Payers Date Payer Category Payer Medicare [employer] MEDICARE [employer] MEDICARE ADVANTAGE PPO [id number] 2022-Present [phone] [address] [address] [place] [address] [id number] 2021 Medicare [id number] 1989 Unknown [id number] 1989 Unknown [id number] 1989 Unknown [id number] 1989 Unknown [id number] 1960 Medicare [id number] Social History Date Type Detail Facility Start: 12-24-2021 [facility] Phone: Start: 12-24-2021 End: 11-28-2023 Tobacco use and exposure Smokeless tobacco non-user [facility] Phone: Start: 12-24-2021 End: 11-28-2023 Alcohol intake Ex-drinker (finding) [facility] Phone: Start: 1990 Sex Assigned At Not on file [facility] Phone: Exposure to SARS-CoV -2 (event) Not sure [facility] Phone: Start: 11-28-2023 [facility] History of tobacco use Tobacco U se Types Packs/Day Years Used Date Smoking Tobacco: Every Day Vaping/E-cigarettes Smokeless Tobacco: Never [facility] Start: 11-02-2020 End: 11-28-2023 History of Social function [facility] Start: 11-02-2020 End: 11-28-2023 Tobacco use panel [facility] Childcare Unknown [facility] History of Present illness Narrative 11-28-2023 Cherry BHARAT Helm-FINANCIAL SALES CONSULTANT - 11/28/2023 8:30 AM EST Note Date & Type Note Facility 11-28-2023 History of Present illness Narrative Images from the original note were not included. [address] [facility] [id number] SUBJECTIVE: Patient ID: Shantelle Hooks is [...] following intervention(s) were applied: encouragement to exercise. Cherry Helm APRN-FINANCIAL SALES CONSULTANT 11/28/23 0901 documented in this encounter [facility] Evaluation note Note Date & Type Note Facility Evaluation note Diagnosis Encounter for medication refill- Primary Issue of repeat prescriptions documented in this encounter [facility] Phone: Evaluation note Note Date & Type Note Facility Evaluation note Diagnosis Palpitations- Primary Chest pain, unspecified type Dyspnea on exertion Other dyspnea and respiratory abnormality documented in this encounter [facility] Hospital Discharge instructions InstructionsAttachments Note Date & [...] cannot be sent through Care Everywhere.Medication Refill (Beninese)documented in this encounter [facility] Phone: Instructions Attachments Note Date & Type Note Facility Instructions The following attachments cannot be sent through Care Everywhere.Palpitations (Beninese)documented in this encounter [facility] Summary Purpose Family History No Family History [...] on exertion Procedures Echo complete W/O contrast Cherry Helm APRN-CNP [address] [place] [address] [facility] [address] [place] [address] Phone: [phone] Referral ID Status Reason Start Date Expiration Date V isits Requested Visits Authorized [id number] Pending Review 11/28/2023 11/27/2024 1 1 Specialty Diagnoses / Procedures Referred By Contbety t Referred To Contact Diagnoses Palpitations Chest pain, unspecified type Dyspnea on exertion Procedures Holter monitor 24-48 hour Cherry Helm APRN-CNP [address] [place] [address] [facility] [address] [place] [address] Phone: [phone] Referral ID Status Reason Start Date Expiration Date V isits Requested Visits Authorized [id number] Pending Review 11/28/2023 11/27/2024 1 1 Specialty Diagnoses / Procedures Referred By Contac t Referred To Contact Diagnoses Palpitations Chest pain, unspecified type Dyspnea on exertion Procedures ECG 12 lead Cherry Helm APRN-CNP [address] [place] [address] Referral ID Status Reason Start Date Expiration Date V isits Requested Visits Authorized [id number] Pending Review 11/28/2023 11/27/2024 1 1 Additional [...] Care Teams (unrecognized sec tion and content) Kier Pleater Relationship Specialty Start Date End Date Conchita Mancia MD [address] [place] [address] PCP - General Psychiatry 12/24/21 Kier Pleater Relationship Specialty Start Date End Date Cherry Helm APRN-CNP [address] [place], [place] [id number] PCP - General Family Medicine 11/28/23 (unrecognized sect ion and content) No Status Records FoundNo Status Records FoundNo Status Records FoundNo Status Records Found INFORMATION SOURCE (unrecogn ized section and content) DATE CREATED AUTHOR 02/28/2023 [facility] DATE CREATED AUTHOR AUTHOR'S ORGANIZ ATION 10/26/2023 [facility] DATE CREATED AUTHOR AUTHOR'S ORGANIZ ATION 04/11/2024 [facility] DATE CREATED AUTHOR AUTHOR'S ORGANIZ ATION 05/23/2024 [facility] dical Specialists EPIC FOR RECORDS PERTAINING TO PATIENTS WHO ARE [...] BE BASED ON THE PRIMARY CLINICAL RECORDS. [facility]. provides no warranty or guarantee of the accuracy or completeness of information in this document.
--- NOTE | 2024-10-01 21:54 | ED_ITS ---
HPI HPI - General Adult General Chief complaint: Headache Stated complaint: SORE THROAT Time Seen by Provider: 10/01/24 21:51 Source: patient Mode of arrival: walk-in Limitations: no limitations History of Present Illness HPI narrative: 33-year-old male presents for a chief complaint of a sore throat. He began yesterday. He has also had a very slight cough, no fever. He does not complain of earache or vomiting. Related Data Home Medications ?Medication ?Instructions ?Recorded ?Confirmed venlafaxine 75 mg capsule,extended 75 mg PO DAILY 03/26/23 11/17/23 release 24 hr Allergies Allergy/AdvReac Type Severity Reaction Status Date / Time doxycycline Allergy Mild shortness Verified 10/01/24 21:53 of breath Opioid HPI Opioid Management Most Recent Opioid Data: Last Pain Scale 8 10/01/24 22:20 10/01/24 Last ED Pain Assessment 10/01/24 21:55 Review of Systems ROS Narrative A ten point review of systems is negative except as noted above. PFSH PFSH Social History Little interest or pleasure in doing things: not at all Feeling down, depressed, or hopeless: several days Exam Narrative Exam Narrative: Nurses note and vital signs reviewed and patient is not hypoxic. General: The patient appears well and in no apparent distress. Patient is resting comfortably on cart. Skin: Warm, dry, no pallor noted. There is no rash noted. Head: Normocephalic, atraumatic Eye: Normal conjunctiva, no drainage Ears, Nose, Mouth, and Throat: oral mucosa is moist. Nares patent. Cardiovascular: Regular Rate and Rhythm Respiratory: Patient is in no distress, no accessory muscle use, lungs are khadijah r to auscultation, no wheezing, rales or rhonchi Back: non-tender GI: Soft and nontender Musculoskeletal: No joint swelling Neurological: A&O, normal speech Psychiatric: Cooperative Constitutional Vital Signs, click to edit/add: Last Vital Signs Temp 98.5 F 10/01/24 21:48 Pulse 93 H 10/01/24 21:48 Resp 16 10/01/24 21:48 BP 139/68 10/01/24 21:48 Pulse Ox 99 10/01/24 21:48 O2 Del Method Room Air 10/01/24 21:48 Course Vital Signs Vital signs: Vital Signs Temperature 98.5 F 10/01/24 21:48 Pulse Rate 93 H 10/01/24 21:48 Respiratory Rate 16 10/01/24 21:48 Blood Pressure 139/68 10/01/24 21:48 Pulse Oximetry 99 10/01/24 21:48 Oxygen Delivery Method Room Air 10/01/24 21:48 Temperature 98.5 F 10/01/24 21:48 Pulse Rate 93 H 10/01/24 21:48 Respiratory Rate 16 10/01/24 21:48 Blood Pressure 139/68 10/01/24 21:48 Pulse Oximetry 99 10/01/24 21:48 Oxygen Delivery Method Room Air 10/01/24 21:48 Medical Decision Making MDM Narrative Medical decision making narrative: Influenza and strep test are negative. COVID is positive and he was informed. Treatment diagnosis and follow-up were discussed with the patient. Differential Diagnosis Differential Diagnosis: COVID, strep, influenza, viral illness Lab Data Lab results reviewed: Yes I reviewed the patient's lab results Labs: Lab Results 10/01/24 Range/Units 21:50 Influenza Type A Ag Negative Influenza Type B Ag Negative SARS-CoV-2 Ag (CV2AG) Positive A (NEGATIVE) Streptococcus Screen Negative Discharge Plan Discharge Chief Complaint: Headache Clinical Impression: COVID-19 Patient Disposition: Home, Self-Care Time of Disposition Decision: 22:29 Condition: Good Mode of Transportation: Private Vehicle Prescriptions / Home Meds: No Action venlafaxine 75 mg capsule,extended release 24hr 75 mg PO DAILY Print Language: Nigerien Instructions: COVID-19 (Coronavirus Disease 2019) (ED), COVID-19: Slow the Coronavirus Spread (ED), Face Coverings (Masks) and COVID-19 (ED) Referrals: Physician,Non-Staff, MD [Primary Care Provider] - 1 week
[2024-10-01 22:20] LABS: Influenza Virus A Antigen Negative; Influenza Virus B Antigen Negative; Internal Control Within Normal Limits; Strep A Antigen Screen Negative
[2024-10-01] MEDS: IBUPROFEN 400 MG TABLET 800 MG PO (22:20)
[2024-10-01 22:21] LABS: SARS-CoV-2 Ag POSITIVE (NEGATIVE)
== END 2024-10-01 22:52 | disposition home or self-care (01) ==
PROVIDERS: Emergency Provider Emergency Medicine
DX: U07.1 COVID-19 (principal)
CPT/HCPCS: 87070; 87804; 87811; 87880; 99285

== ENCOUNTER 2024-11-21 10:55 | Outpatient (OUT) | payer MEDICARE, SELFPAY ==
--- NOTE | 2024-11-21 | XR_ITS ---
The [address] [address] Patient Name: SHANTELLE HOOKS MRN: [id number] date: 1990 Sex: M Assigned Patient Location: Current Patient Location: Accession/Order Number: [id number] Exam Date: 11/21/2024 11:00 Report Date: 11/24/2024 08:23 At the request of: BOZEAN RAMIREZ Procedure: XR lumbar spine min 4V EXAMINATION: XR lumbar spine min 4V HISTORY: LUMBAR SPINE PAIN COMPARISON: No relevant comparison available. FINDINGS: BONES: Normal. No significant spondylosis, scoliosis, fracture, or visible bony lesion. DISC SPACES: Normal. No significant disc height narrowing, subluxation, or endplate abnormality. PARASPINOUS: Negative. No paraspinous abnormality is seen. OTHER: Negative. XR/XR lumbar spine min 4V IMPRESSION: No acute radiographic abnormality Electronically authenticated by: NIKO DHILLON Date: 11/24/2024 08:23
--- OUTSIDE RECORDS SUMMARY | 2024-11-21 11:14 | XMS_ITS | CCD ---
Author Organization [facility] Informat ion Partnership [facility] Care Team Providers Care Analysis Or Research Safety Inspector Name Role Phone Conchita Mancia MD Primary Care Provider [facility] [place] [place] Primary Care Unavailable BHAKTI PINEDA Attending Unavailable BHAKTI PINEDA Consulting Unavailable BHAKTI PINEDA Admitting Unavailable CONCHITA MANCIA Primary Care Unavailable NAM GARCIA Attending Unavailable Cherry Cortez Primary Care Provide r EREN SHEA Attending Unavailable CHERRY HELM Referring Unavailable NO, PHYSICIAN Primary Care Unavailable NIKO MOLINA Attending Unavailable Allergies Allergy Classification Reported Allergen(s) Allergy Type Date of Onset Reaction(s) Facility (3 sources) Doxycycline; Translations: [DOXYCYCLINE] Drug Allergy 0 [facility] (1 source) Doxycycline Drug Allergy [facility] Repository Medications Current Medications Medication Drug [...] [NICOTINE DEPEND CIGARETTES UNCOMP] Onset: 02-27-2023 Chronic Past or Other Problems Problem Classification Problem Date Documented Da te Episodic/Chronic Unclassified (1 source) Onset: 11-28-2023 11-28-2023 Urinary tract infections (2 sources) Other urethritis; Translations: [Other urethritis] Onset: 01-21-2024 Episodic Results Test Name Value Interpretation Reference Range Facil ity Chlamydia/GC DNA, Uron 10-25 Chlamydia Probe, Ur Negative Normal NEG [facility] Comment on above: Result Comment: [...] target. Performed By: #### U CGP #### [id number] [place], [place] [id number] Outsole Compressor: Felice Russ MD Gonorrhea Probe, Ur Negative Normal NEG [facility] Comment on above: Result Comment: [...] target. Performed By: #### U CGP #### [address] [address] Outsole Compressor: Felice Russ MD Urinalysis w/ Microon 2023 Bacteria TRACE Abnormal NONE [facility] Comment on above: Performed By: #### U AMIC #### [facility] [address] [place] [address] Outsole Compressor: Niko Garcia MD Bilirubin, SemiQt,Ur Negative Normal NEG [facility] Comment on above: Performed By: #### U AMIC #### [facility] [address] [place] [address] Outsole Compressor: Niko Garcia MD Blood, Urine Negative Normal NEG [facility] Comment on above: Performed By: #### U AMIC #### [facility] [address] [place] [address] Outsole Compressor: Niko Garcia MD Clarity (U) Clear Normal CLEAR [facility] Comment on above: Performed By: #### U AMIC #### [facility] [address] [place] [address] Outsole Compressor: Niko Garcia MD Color (U) Yellow Normal YEL [facility] Comment on above: Performed By: #### U AMIC #### [facility] [address] [place] [address] [place] [place], [place] [id number] Outsole Compressor: Niko Garcia MD Epithelial cells LM Ql (Urine sed) None Normal 0-5 [facility] Comment on above: Performed By: #### U AMIC #### [facility] [address] [place] [address] [place], [place] [id number] Outsole Compressor: Niko Garcia MD Glucose Ql (U) Negative Normal NEG [facility] in Hospital Comment on above: Performed By: #### U AMIC #### [facility] [address] [place] [address] [place], [place] [id number] Outsole Compressor: Niko Garcia MD Ketones Ql (U) Negative Normal NEG [facility] in [facility] Comment on above: Performed By: #### U AMIC #### [facility] [address] [place] [address] [place], [place] [id number] Outsole Compressor: Niko Garcia MD Leukocyte esterase Test strip Ql (U) Negative Normal NEG [facility] Comment on above: Performed By: #### U AMIC #### [address] [place], [place] [id number] Outsole Compressor: Niko Garcia MD Nitrite,Ur Negative Normal NEG [facility] Comment on above: Performed By: #### U AMIC #### [facility] [address] [place] [address] Dr[place], [place] [phone] Outsole Compressor: Niko Garcia MD PH,Ur 6.5 Normal 5.0-9.0 [facility] Comment on above: Performed By: #### U AMIC #### [facility] [address] [place] [address] Dr[place], [place] [phone] Outsole Compressor: Niko Garcia MD Protein Ql (U) Negative Normal NEG [facility] in [facility] Comment on above: Performed By: #### U AMIC #### [facility] [address] [place], [place] [id number] Outsole Compressor: Niko Garcia MD Spec. [place],Ur 1.020 Normal 1.010-1.020 [facility] Comment on above: Performed By: #### U AMIC #### [facility] [address] [place] [address] Outsole Compressor: Niko Garcia MD Urine RBC's 0 TO 2 Normal 0-2 [facility] Comment on above: Performed By: #### U AMIC #### [facility] [address] [place] [address] Outsole Compressor: Niko Garcia MD Urine WBC's 0 TO 2 Normal 0-5 [facility] Comment on above: Performed By: #### U AMIC #### [facility] [address] [place] [address] Outsole Compressor: Niko Garcia MD Urobilinogen,Ur Normal Normal 0.0-1.0 [facility] Comment on above: Performed By: #### U AMIC #### [facility] [address] [place], [place] [phone] Outsole Compressor: Niko Garcia MD CHLAMYDIA/GONOCOCCUS SHANTA ( AB/URINE/PAPon 02-27-2023 Chlamydia trachomatis, SHANTA Negative Normal Negative [facility] Comment on above: Performed By: #### C T/NGNA #### [facility] [address] [address] [address] Andrés Fallon Neisseria gonorrhoeae, SHANTA Negative Normal Negative [facility] Comment on above: Performed By: #### C T/NGNA #### [facility] [address] [address] [address] Andrés Fallon ER URINE PROFILEon 3 Bilirubin Ql (U) Negative Normal NEGATIVE [facility] Comment on above: Performed By: #### U MICRO, ERUR #### [facility] [address] [address] [address] Andrés Fallon Clarity (U) CLEAR Normal CLEAR [facility] Comment on above: Performed By: #### U MICRO, ERUR #### [facility] [address] [address] [address] Andrés Fallon Color (U) YELLOW Normal YELLOW [facility] Comment on above: Performed By: #### U MICRO, ERUR #### [facility] [address] [address] [address] Andrés Fallon ERUAHD A micrscopic examination will be performed if indicated. Normal [facility] Comment on above: Performed By: #### U MICRO, ERUR #### [facility] [address] [address] [address] Andrés Fallon Glucose Ql (U) Negative Normal NEGATIVE [facility] Comment on above: Performed By: #### U MICRO, ERUR #### [facility] [address] [address] [address] Andrés Fallon Hemoglobin Ql (U) Negative Normal NEGATIVE [facility] Comment on above: Performed By: #### U MICRO, ERUR #### [facility] [address] [address] [address] Andrés Fallon Ketones Ql (U) Negative Normal NEGATIVE [facility] Comment on above: Performed By: #### U MICRO, ERUR #### [facility] [address] [address] [address] Andrés Fallon LEUKOCYTES Negative Normal NEGATIVE [facility] Comment on above: Performed By: #### U MICRO, ERUR #### [facility] [address] [address] [address] Andrés Fallon Nitrite Ql (U) Negative Normal NEGATIVE [facility] Comment on above: Performed By: #### U MICRO, ERUR #### [facility] [address] [place] [address] Dr. Andrés Fallon pH (U) 6.0 [pH] Normal 5-9 [facility] Comment on above: Performed By: #### U MICRO, ERUR #### [facility] [address] [address] [address] Andrés Fallon SPEC GRAVITY >=1.030 Abnormal 1.005-<=1.025 [facility] Comment on above: Performed By: #### U MICRO, ERUR #### [facility] [address] [address] [address] Andrés Fallon UA PROTEIN Negative Normal NEGATIVE/ TRACE [facility] Comment on above: Performed By: #### U MICRO, ERUR #### [facility] [address] [place] [address] Dr. Andrés Fallon UR MICRO IND INDICATED Normal [facility] Comment on above: Performed By: #### U MICRO, ERUR #### [facility] [address] [place] [address] Dr. Andrés Fallon Urobilinogen Qn (U) 0.2 {Suzanne'U}/dL Normal 0.2 - 1. 0 [facility] Comment on above: Performed By: #### U MICRO, ERUR #### [facility] [address] [place] [address] Dr. Andrés Fallon URINE MICROSCOPIC ONLYon BACTERIA NONE SEEN Normal NONE SEEN [facility] Comment on above: Performed By: #### U MICRO, ERUR #### [facility] [address] [place] [address] Dr. Andrés Fallon Bacteria identified Cx Nom (U) NOT INDICATED Normal [facility] Comment on above: Performed By: #### U MICRO, ERUR #### [facility] [address] [place] [address] Dr. Andrés Fallon CAST NONE SEEN Normal NONE SEEN [facility] Comment on above: Performed By: #### U MICRO, ERUR #### [facility] [address] [place] [address] Dr. Andrés Fallon Crystals LM Nom (Urine sed) NONE SEEN Normal NONE SEEN [facility] Comment on above: Performed By: #### U MICRO, ERUR #### [facility] [address] [place] [address] Dr. Andrés Fallon Epithelial cells LM Ql (Urine sed) RARE Normal NONE SEEN /RARE [facility] Comment on above: Performed By: #### U MICRO, ERUR #### [facility] [address] [address] [address] Andrés Fallon MUCOUS TRACE Abnormal NONE SEEN [facility] Comment on above: Performed By: #### U MICRO, ERUR #### [facility] [address] [address] [address] Andrés Fallon RBC 0-2 Normal 0-2 [facility] Comment on above: Performed By: #### U MICRO, ERUR #### [facility] [address] [address] [address] Andrés Fallon TRICH NONE SEEN Normal NONE SEEN [facility] Comment on above: Result Comment: RESU LTED PER DR Performed By: #### U MICRO, ERUR #### [facility] [address] [address] [address] Andrés Fallon WBC 2-5 Abnormal NONE SEEN [facility] Comment on above: Performed By: #### U MICRO, ERUR #### [facility] [address] [address] [address] Andrés Fallon Vital Signs Date Time Vital Sign Value Performing Clinician Quincy garcia 11-28-2023 08:43-0500 Body mass index (BMI) [Ratio] 26.92 kg/m2 Cherry Helm APRN-TWISTHAND Work Phone: [facility] 11-28-2023 08:43-0500 Body weight 87.54 kg Cherry Helm APRN-TWISTHAND Work Phone: [facility] 11-28-2023 08:43-0500 Diastolic blood pressure 62 mm[Hg] Cherry Helm APRN-TWISTHAND Work Phone: [facility] 11-28-2023 08:43-0500 Heart rate 56 /min Cherry Helm APRN-TWISTHAND Work Phone: [facility] 11-28-2023 08:43-0500 Respiratory rate 16 /min Cherry Helm DEVELOPMENTAL TRAINING COUNSELOR-TWISTHAND [facility] 11-28-2023 08:43-0500 SaO2% (BldA) [Mass fraction] 98 % Cherry Helm DEVELOPMENTAL TRAINING COUNSELOR-TWISTHAND Work Phone: [facility] 11-28-2023 08:43-0500 Systolic blood pressure 110 mm[Hg] Cherry Helm DEVELOPMENTAL TRAINING COUNSELOR-TWISTHAND Work Phone: [facility] 12-24-2021 11:48-0500 Body height 180.3 cm Conchita Mancia MD Work Phone: [facility] 12-24-2021 11:48-0500 Body mass index (BMI) [Ratio] 23.01 kg/m2 Conchita Mancia MD Work Phone: [facility] 12-24-2021 11:48-0500 Body temperature 97.2 [degF] Conchita Mancia MD Work Phone: [facility] 12-24-2021 11:48-0500 Body weight 74.84 kg Conchita Mancia MD Work Phone: [facility] 12-24-2021 11:48-0500 Diastolic blood pressure 67 mm[Hg] Conchita Mancia MD Work Phone: [facility] 12-24-2021 11:48-0500 Heart rate 61 /min Conchita Mancia MD Work Phone: [facility] 12-24-2021 11:48-0500 Respiratory rate 16 /min Conchita Mancia MD Work Phone: [facility] 12-24-2021 11:48-0500 SaO2% (BldA) [Mass fraction] 98 % Conchita Mancia MD Work Phone: [facility] 12-24-2021 11:48-0500 Systolic blood pressure 111 mm[Hg] Conchita Mancia MD Work Phone: [facility] Encounters Encounter Date Encounter Type Care Provider Facility Start: 05-21-2024 End: 05-21-2024 ambulatory EREN SHEA Not Available Start: 01-21-2024 End: 01-21-2024 Emergency department patient visit PHYSICIAN PEREZ [facility] Start: 11-28-2023 End: 11-28-2023 Office outpatient new 30 minutes Cherry Helm DEVELOPMENTAL TRAINING COUNSELOR-TWISTHAND Work Phone: [facility] Comment on above: Palpitations (Primar y Dx); Chest pain, unspecified type; Dyspnea on exertion Start: 10-24-2023 End: 10-24-2023 Emergency department patient visit CONCHITA Meraz [facility] Start: 02-25-2023 End: 02-25-[address] JARA [facility] [place] Facility: Start: 12-24-2021 End: 12-24-2021 Emergency department patient visit Conchita Mancia MD Work Phone: [facility] ED Comment on above: Encounter for medica tion refill (Primary Dx) Plan of Treatment Date Care Activity Detail Author Start: 12-01-2024 End: 12-01-2024 Patient encounter procedure 12/01/2024 10:30 AM EST Office Visit [facility] [address] [place] [id number] Cherry Helm APRN-CNP [address] [place] [address] [facility] Start: 11-28-2024 Adult BMI Follow Up Plan Adult BMI Follow Up Plan [facility] Start: 11-28-2024 Adult BMI Screening Adult BMI Screening [facility] Start: 11-28-2024 Tobacco Screening Tobacco Screening [facility] Start: 12-07-2023 End: 12-07-2023 Patient encounter procedure [facility] Start: 11-28-2023 End: 11-27-2024 CBC W Auto Differential panel - Blood [facility] Work Phone: Comment on above: Expected: 11/28/2023, Expires: Start: 11-28-2023 End: 11-28-2024 Echo complete W/O contrast Echo complete W/O contrast Echocardiography Routine Palpitations Chest pain, unspecified type Dyspnea on exertion Expected: 11/28/2023, Expires: 11/28/2024 [facility] [employer] [facility] Comment on above: Expected: 11/28/2023, Expires: Start: 11-28-2023 End: 11-28-2024 Holter monitor study Holter monitor 24-48 hour Cardiac Services Routine Palpitations Chest pain, unspecified type Dyspnea on exertion Expected: 11/28/2023, Expires: 11/28/2024 [facility] Comment on above: Expected: 11/28/2023, Expires: Start: 11-28-2023 End: 11-27-2024 Lipid 1996 panel - Serum or Plasma [facility] Comment on above: Expected: 11/28/2023, Expires: Start: 11-28-2023 End: 11-27-2024 Thyroid profile includes TSH FT4 [facility] Comment on above: Expected: 11/28/2023, Expires: Start: 06-15-2023 Influenza vaccination Influenza Vaccine [facility] Start: 06-15-2021 Influenza vaccination Flu vaccine (#1) [facility] Start: 2008 DTaP,Tdap and Td Vaccines (1 - Tdap) DTaP,Tdap and Td Vaccines (1 - Tdap) [facility] Start: 2001 Depression Screening Depression Screening [facility] Start: 1994 COVID-19 Vaccine (1) COVID-19 Vaccine (1) [facility] Start: 1989 Tobacco Counseling Tobacco Counseling [facility] End: 11-27-2024 Comprehensive metabolic 2000 panel - Serum or Plasma Comprehensive metabolic panel Lab Routine Palpitations Chest pain, unspecified type Dyspnea on exertion 1 Occurrences starting 11/28/2023 until 11/27/2024 [facility] [employer] [facility] Comment on above: 1 Occurrences starting 11/28/2023 until 11/27/2024 Comprehensive metabolic 2000 panel - Serum or Plasma Comprehensive metabolic panel Lab Routine Palpitations Chest pain, unspecified type Dyspnea on exertion 11/28/2023 10:01 AM EST [facility] Payers Date Payer Category Payer Medicare [employer] MEDICARE UHC MEDICARE ADVANTAGE PPO [id number] 2022-Present [phone] [address] [address] [place] [address] [id number] 2021 Medicare [id number] 1989 Unknown [id number] 1989 Unknown [id number] 1989 Unknown [id number] 1989 Unknown [id number] 1960 Medicare [id number] Social History Date Type Detail Facility Start: [facility]24-[facility]21 [facility] Phone: Start: 12-24-2021 End: 11-28-2023 Tobacco use and exposure Smokeless tobacco non-user [employer] Phone: Start: 12-24-2021 End: 11-28-2023 Alcohol intake Ex-drinker (finding) [employer] Phone: Start: 1990 Sex Assigned At Not on file M Ayi [facility] Phone: Exposure to SARS-CoV -2 (event) Not sure [facility] Phone: Start: 11-28-2023 [facility] History of tobacco use Tobacco U se Types Packs/Day Years Used Date Smoking Tobacco: Every Day Vaping/E-cigarettes Smokeless Tobacco: Never [facility] Start: 11-02-2020 End: 11-28-2023 History of Social function [facility] Start: 11-02-2020 End: 11-28-2023 Tobacco use panel [facility] Childcare Unknown [facility] History of Present illness Narrative 11-28-2023 Cherry BHARAT Heml-TWISTHAND - 11/28/2023 8:30 AM EST Note Date & Type Note Facility 11-28-2023 History of Present illness Narrative Images from the original note were not included. [address] [facility] [address] SUBJECTIVE: Patient ID: Shantelle Hooks is [...] were applied: encouragement to exercise. Cherry Helm APRN-TWISTHAND 11/28/23 0901 documented in this encounter [facility] Evaluation note Note Date & Type Note Facility Evaluation note Diagnosis Encounter for medication refill- Primary Issue of repeat prescriptions documented in this encounter [facility] Phone: Evaluation note Note Date & Type Note Facility Evaluation note Diagnosis Palpitations- Primary Chest pain, unspecified type Dyspnea on exertion Other dyspnea and respiratory abnormality documented in this encounter [facility] Hospital Discharge instructions InstructionsAttachments Note Date [...] cannot be sent through Care Everywhere.Medication Refill (Libyan)documented in this encounter [facility] Phone: Instructions Attachments Note Date & Type Note Facility Instructions The following attachments cannot be sent through Care Everywhere.Palpitations (Libyan)documented in this encounter [facility] Summary Purpose Family History No Family [...] Echo complete W/O contrast Cherry Helm APRN-CNP [address] [place] [address] [facility] [address] [place] [address] Phone: [phone] Referral ID Status Reason Start Date Expiration Date V isits Requested Visits Authorized [id number] Pending Review 11/28/2023 11/27/2024 1 1 Specialty Diagnoses / Procedures Referred By Contbety t Referred To Contact Diagnoses Palpitations Chest pain, unspecified type Dyspnea on exertion Procedures Holter monitor 24-48 hour Cherry Helm APRN-CNP [address] [place] [address] [facility] [address] [place] [address] Phone: [phone] Referral ID Status Reason Start Date Expiration Date V isits Requested Visits Authorized [id number] Pending Review 11/28/2023 11/27/2024 1 1 Specialty Diagnoses / Procedures Referred By Contac t Referred To Contact Diagnoses Palpitations Chest pain, unspecified type Dyspnea on exertion Procedures ECG 12 lead Cherry Helm APRN-CNP [address] [place] [address] Referral ID Status Reason Start Date Expiration Date V isits Requested Visits Authorized [id number] Pending Review 11/28/2023 11/27/2024 1 1 Additional [...] Care Teams (unrecognized sec tion and content) Analysis Or Research Safety Inspector Relationship Specialty Start Date End Date Conchita Mancia MD [address] [place] [address] PCP - General Psychiatry 12/24/21 Analysis Or Research Safety Inspector Relationship Specialty Start Date End Date Cherry Helm APRN-CNP [address] [place], [place] [id number] PCP - General Family Medicine 11/28/23 (unrecognized sect ion and content) No Status Records FoundNo Status Records FoundNo Status Records FoundNo Status Records Found INFORMATION SOURCE (unrecogn ized section and content) DATE CREATED AUTHOR 02/28/2023 [facility] DATE CREATED AUTHOR AUTHOR'S ORGANIZ ATION 10/26/2023 [facility] DATE CREATED AUTHOR AUTHOR'S ORGANIZ ATION 05/23/2024 [facility] DATE CREATED AUTHOR AUTHOR'S ORGANIZ ATION [facility]2024 [facility] PERTAINING TO PATIENTS WHO ARE [...] BE BASED ON THE PRIMARY CLINICAL RECORDS. [facility] [facility]. provides no warranty or guarantee of the accuracy or completeness of information in this document.
== END 2024-11-21 10:56 | disposition home or self-care (01) ==
LOC: EC 10:55
PROVIDERS: Visit Provider Orthopaedic Surgery Orthopaedic Surgery of the Spine
DX: M54.50 Low back pain, unspecified (principal)
CPT/HCPCS: 72110

== ENCOUNTER 2024-12-29 19:23 | Emergency (ER) | payer MEDICARE, SELFPAY ==
[2024-12-29 19:29] VITALS: BP 134/83; PULSE 68; TEMP 36.6; O2SAT 98; BMI 25.8
--- OUTSIDE RECORDS SUMMARY | 2024-12-29 19:30 | XMS_ITS | CCD ---
Author Organization [facility] Care Team Providers Care Resource Management Specialist Name Role Phone Conchita Mancia MD Primary Care Provider DR ESTEFANI OCONNELL Primary Care Unavailable BHAKTI PINEDA Attending Unavailable BHAKTI PINEDA Consulting Unavailable BHAKTI PINEDA Admitting Unavailable CONCHITA MANCIA Primary Care Unavailable NAM GACRIA Attending Unavailable EREN SHEA Attending Unavailable CHERRY HELM Referring Unavailable NO, PHYSICIAN Primary Care Unavailable NIKO MOLINA Attending Unavailable Volodymyr BLUE LINE OPERATOR-Cherry TERRELL Primary Care Provide r Allergies Allergy Classification Reported Allergen(s) Allergy Type Date of Onset Reaction(s) Facility (4 sources) Doxycycline; Translations: [DOXYCYCLINE] Drug Allergy 0 [facility] (1 source) Doxycycline Drug Allergy [facility] Repository Medications Current Medications Medication Drug [...] [Encounter for issue of repeat prescription] Episodic Genitourinary symptoms and ill-defined conditions (4 sources) Urethral discharge, unspecified; Translations: [URETHRAL DISCHARGE UNSPECIFIED] Onset: 02-25-2023 Episodic Immunizations and screening for infectious disease (1 source) Contact with and (suspected) exposure to infections with a predominantly sexual mode of transmission; Translations: [Contact with and (suspected) exposure to infections with a predominantly sexual mode of transmission] Onset: 10-24-2023 Episodic Substance-related disorders (1 source) Nicotine dependence, cigarettes, uncomplicated; Translations: [NICOTINE DEPEND CIGARETTES UNCOMP] Onset: 02-27-2023 Chronic Past or Other Problems Problem Classification Problem Date Documented Da te Episodic/Chronic Cardiac dysrhythmias (1 source) Palpitations; Translations: [Palpitations] 11-28-2023 Episodic Nonspecific chest pain (1 source) Chest pain; Translations: [Chest pain, unspecified] 11-28-2023 Episodic Other ear and sense organ disorders (1 source) Tinnitus of right ear; Translations: [Tinnitus, right ear] 03-28-2024 Episodic Other lower respiratory disease (1 source) Dyspnea on exertion; Translations: [Other forms of dyspnea] 11-28-2023 Episodic Spondylosis; intervertebral disc disorders; other back problems (2 sources) Thoracic back pain; Translations: [Pain in thoracic spine] 03-28-2024 Episodic Unclassified (2 sources) Onset: 11-28-2023 Resolved: 03-28-2024 03-28-2024 Urinary tract infections (2 sources) Other urethritis; Translations: [Other urethritis] Onset: 01-21-2024 Episodic Results Test Name Value Interpretation Reference Range Facil ity Chlamydia/GC DNA, Uron 10-25 Chlamydia Probe, Ur Negative Normal NEG [facility] Comment on above: Result Comment: [...] target. Performed By: #### U CGP #### [address] [place], [place] [id number] Glass Polisher: Felice Russ MD Gonorrhea Probe, Ur Negative Normal NEG [facility] Comment on above: Result Comment: [...] target. Performed By: #### U CGP #### [address] [address] Glass Polisher: Felice Russ MD Urinalysis w/ Microon 2023 Bacteria TRACE Abnormal NONE [facility] Comment on above: Performed By: #### U AMIC #### [facility] [address] [place] [address] [place] [address] Glass Polisher: Niko Garcia MD Bilirubin, SemiQt,Ur Negative Normal NEG [facility] Comment on above: Performed By: #### U AMIC #### [facility] [address] [place] [address] Glass Polisher: Niko Garcia MD Blood, Urine Negative Normal [facility] Comment on above: Performed By: #### U AMIC #### [facility] [address] [place] [address] Glass Polisher: Niko Garcia MD Clarity (U) Clear Normal CLEAR [facility] Comment on above: Performed By: #### U AMIC #### [facility] [address] [place], [place] [id number] Glass Polisher: Niko Garcia MD Color (U) Yellow Normal YEL [facility] Comment on above: Performed By: #### U AMIC #### [facility] [address] [place], [place] [id number] Glass Polisher: Niko Garcia MD Epithelial cells LM Ql (Urine sed) None Normal 0-5 [facility] Comment on above: Performed By: #### U AMIC #### [facility] [address] [place] [address] Dr. [place], [place] [id number] Glass Polisher: Niko Garcia MD Glucose Ql (U) Negative Normal NEG [facility] Comment on above: Performed By: #### U AMIC #### [facility] [address] [place] [address] Dr. [place], [place] [id number] Glass Polisher: Niko Garcia MD Ketones Ql (U) Negative Normal NEG [facility] Comment on above: Performed By: #### U AMIC #### [facility] [address] [place] [address] Dr. [place], [place] [id number] Glass Polisher: Niko Garcia MD Leukocyte esterase Test strip Ql (U) Negative Normal NEG [facility] Comment on above: Performed By: #### U AMIC #### [facility] [address] [place] [address] Dr. [place], [place] [id number] Glass Polisher: Niko Garcia MD Nitrite,Ur Negative Normal NEG [facility] Comment on above: Performed By: #### U AMIC #### [facility] [address] [place] [address] Dr. [place], [place] [id number] Glass Polisher: Niko Garcia MD PH,Ur 6.5 Normal 5.0-9.0 [facility] Comment on above: Performed By: #### U AMIC #### [facility] [address] [place], [place] [id number] Glass Polisher: Niko Garcia MD Protein Ql (U) Negative Normal NEG [facility] Comment on above: Performed By: #### U AMIC #### [facility] [address] [place] [address] Glass Polisher: Niko Garcia MD Spec. Minerva,Ur 1.020 Normal 1.010-1.020 [facility] Comment on above: Performed By: #### U AMIC #### [facility] [address] [place], [place] [id number] Glass Polisher: Niko Garcia MD Urine RBC's 0 TO 2 Normal 0-2 [facility] Comment on above: Performed By: #### U AMIC #### [facility] [address] [place] [address] Glass Polisher: Niko Garcia MD Urine WBC's 0 TO 2 Normal 0-5 [facility] Comment on above: Performed By: #### U AMIC #### [address] [place], [place] [id number] Glass Polisher: Niko Garcia MD Urobilinogen,Ur Normal Normal 0.0-1.0 [facility] Comment on above: Performed By: #### U AMIC #### [facility] [address] [place], [place] [id number] Glass Polisher: Niko Garcia MD CHLAMYDIA/GONOCOCCUS SHANTA ( AB/URINE/PAPon 02-27-2023 Chlamydia trachomatis, SHANTA Negative Normal Negative [facility] Comment on above: Performed By: #### C T/NGNA #### [facility] [address] [place] [address] Dr. Andrés Fallon Neisseria gonorrhoeae, SHANTA Negative Normal Negative [facility] Comment on above: Performed By: #### C T/NGNA #### [facility] [address] [address] [address] Andrés Fallon ER URINE PROFILEon 3 Bilirubin Ql (U) Negative Normal NEGATIVE [facility] Comment on above: Performed By: #### U MICRO, ERUR #### [facility] [address] [place] [address] Dr. Andrés Fallon Clarity (U) CLEAR Normal CLEAR [facility] Comment on above: Performed By: #### U MICRO, ERUR #### [facility] [address] [address] [address] Andrés Fallon Color (U) YELLOW Normal YELLOW [facility] Comment on above: Performed By: #### U MICRO, ERUR #### [facility] [address] [place] [address] Dr. Andrés REEVES A micrscopic examination will be performed if indicated. Normal [facility] Comment on above: Performed By: #### U MICRO, ERUR #### [facility] [address] [place] [address] Dr. Andrés Fallon Glucose Ql (U) Negative Normal NEGATIVE [facility] Comment on above: Performed By: #### U MICRO, ERUR #### [facility] [address] [place] [address] Dr. Andrés Fallon Hemoglobin Ql (U) Negative Normal NEGATIVE [facility] Comment on above: Performed By: #### U MICRO, ERUR #### [facility] [address] [address] [address] Andrés Fallon Ketones Ql (U) Negative Normal NEGATIVE [facility] Comment on above: Performed By: #### U MICRO, ERUR #### [facility] [address] [place] [address] Dr. Andrés Fallon LEUKOCYTES Negative Normal NEGATIVE [facility] Comment on above: Performed By: #### U MICRO, ERUR #### [facility] [address] [place] [address] Dr. Andrés Fallon Nitrite Ql (U) Negative Normal NEGATIVE [facility] Comment on above: Performed By: #### U MICRO, ERUR #### [facility] [address] [place] [address] Dr. Andrés Fallon pH (U) 6.0 [pH] Normal 5-9 [facility] Comment on above: Performed By: #### U MICRO, ERUR #### [facility] [address] [place] [address] Dr. Andrés Fallon SPEC GRAVITY >=1.030 Abnormal 1.005-<=1.025 [facility] Comment on above: Performed By: #### U MICRO, ERUR #### [facility] [address] [place] [address] Dr. Andrés Fallon UA PROTEIN Negative Normal NEGATIVE/ TRACE [facility] Comment on above: Performed By: #### U MICRO, ERUR #### [facility] [address] [place] [address] Dr. Andrés Fallon UR MICRO IND INDICATED Normal [facility] Comment on above: Performed By: #### U MICRO, ERUR #### [facility] [address] [place] [address] Dr. Andrés Fallon Urobilinogen Qn (U) 0.2 {Suzanne'U}/dL Normal 0.2 - 1. 0 [facility] Comment on above: Performed By: #### U MICRO, ERUR #### [facility] [address] [place] [address] Dr. Andrés Fallon URINE MICROSCOPIC ONLYon BACTERIA NONE SEEN Normal NONE SEEN [facility] Comment on above: Performed By: #### U MICRO, ERUR #### [facility] [address] [place] [address] Dr. Andrés Fallon Bacteria identified Cx Nom (U) NOT INDICATED Normal [facility] Comment on above: Performed By: #### U MICRO, ERUR #### [facility] [address] [place] [address] Dr. Andrés Fallon CAST NONE SEEN Normal NONE SEEN [facility] Comment on above: Performed By: #### U MICRO, ERUR #### [facility] [address] [place] [address] Dr. Andrés Fallon Crystals LM Nom (Urine sed) NONE SEEN Normal NONE SEEN [facility] Comment on above: Performed By: #### U MICRO, ERUR #### [facility] [address] [address] [address] Andrés Fallon Epithelial cells LM Ql (Urine sed) RARE Normal NONE SEEN /RARE [facility] Comment on above: Performed By: #### U MICRO, ERUR #### [facility] [address] [address] [address] Andrés Fallon MUCOUS TRACE Abnormal NONE SEEN [facility] Comment on above: Performed By: #### U MICRO, ERUR #### [facility] [address] [place] [address] Dr. Andrés Fallon RBC 0-2 Normal 0-2 [facility] Comment on above: Performed By: #### U MICRO, ERUR #### [facility] [address] [place] [address] Dr. Andrés Fallon TRICH NONE SEEN Normal NONE SEEN [facility] Comment on above: Result Comment: RESU LTED PER DR Performed By: #### U MICRO, ERUR #### [facility] [address] [place] [address] Dr. Andrés Fallon WBC 2-5 Abnormal NONE SEEN [facility] Comment on above: Performed By: #### U MICRO, ERUR #### [facility] [address] [place] [address] Dr. Andrés Fallon Vital Signs Date Time Vital Sign Value Performing Clinician Quincy garcia 03-28-2024 09:12040 Body mass index (BMI) [Ratio] 27.34 kg/m2 Cherry Helm APRN-FOUNTAIN HELPER Work Phone: [facility] 03-28-2024 09:12040 Body weight 88.91 kg Cherry Helm APRN-FOUNTAIN HELPER Work Phone: [facility] 03-28-2024 09:120400 Diastolic blood pressure 72 mm[Hg] Cherry Helm APRN-FOUNTAIN HELPER Work Phone: [facility] 03-28-2024 09:12-0400 Heart rate 88 /min Cherry Schtamikochter BLUE LINE OPERATOR-FOUNTAIN HELPER Work Phone: [facility] 03-28-2024 09:12-0400 Respiratory rate 16 /min Cherry Schlachter BLUE LINE OPERATOR-FOUNTAIN HELPER Work Phone: [facility] 03-28-2024 09:12-0400 SaO2% (BldA) [Mass fraction] 98 % Cherry Schlachter BLUE LINE OPERATOR-FOUNTAIN HELPER Work Phone: [facility] 03-28-2024 09:12-0400 Systolic blood pressure 116 mm[Hg] Cherry Schlachter BLUE LINE OPERATOR-FOUNTAIN HELPER Work Phone: [facility] 11-28-2023 08:43-0500 Body mass index (BMI) [Ratio] 26.92 kg/m2 Cherry Schlachter BLUE LINE OPERATOR-FOUNTAIN HELPER Work Phone: [facility] 11-28-2023 08:43-0500 Body weight 87.54 kg Cherry Schlachter BLUE LINE OPERATOR-FOUNTAIN HELPER Work Phone: [facility] 11-28-2023 08:43-0500 Diastolic blood pressure 62 mm[Hg] Cherry Schlachter BLUE LINE OPERATOR-FOUNTAIN HELPER Work Phone: [facility] 11-28-2023 08:43-0500 Heart rate 56 /min Cherry Schlachter BLUE LINE OPERATOR-FOUNTAIN HELPER Work Phone: [facility] 11-28-2023 08:43-0500 Respiratory rate 16 /min Cherry Schlachter BLUE LINE OPERATOR-FOUNTAIN HELPER Work Phone: [facility] 11-28-2023 08:43-0500 SaO2% (BldA) [Mass fraction] 98 % Cherry Schlachter BLUE LINE OPERATOR-FOUNTAIN HELPER Work Phone: [facility] 11-28-2023 08:43-0500 Systolic blood pressure 110 mm[Hg] Cherry Schlachter BLUE LINE OPERATOR-FOUNTAIN HELPER Work Phone: [facility] 12-24-2021 11:48-0500 Body height 180.3 cm Conchita Mancia MD Work Phone: [employer] 12-24-2021 11:48-0500 Body mass index (BMI) [Ratio] 23.01 kg/m2 Conchita Mancia MD Work Phone: [employer] 12-24-2021 11:48-0500 Body temperature 97.2 [degF] Conchita Mancia MD Work Phone: [employer] 12-24-2021 11:48-0500 Body weight 74.84 kg Conchita Mancia MD Work Phone: [employer] 12-24-2021 11:48-0500 Diastolic blood pressure 67 mm[Hg] Conchita Mancia MD Work Phone: [employer] 12-24-2021 11:48-0500 Heart rate 61 /min Conchita Mancia MD Work Phone: [employer] 12-24-2021 11:48-0500 Respiratory rate 16 /min Conchita Mancia MD Work Phone: [employer] 12-24-2021 11:48-0500 SaO2% (BldA) [Mass fraction] 98 % Conchita Mancia MD Work Phone: [employer] 12-24-2021 11:48-0500 Systolic blood pressure 111 mm[Hg] Conchita Mancia MD Work Phone: [employer] Encounters Encounter Date Encounter Type Care Provider Facility Start: 05-21-2024 End: 05-21-2024 ambulatory EREN H TIMMIS Not Available Start: 03-28-2024 End: 03-28-2024 Office outpatient visit 25 minutes Cherry Helm APRN-FOUNTAIN HELPER Work Phone: [facility] Comment on above: Tinnitus of right ea r (Primary Dx); Midline thoracic back pain, unspecified chronicity; Chronic midline low back pain without sciatica Start: 01-21-2024 End: 01-21-2024 Emergency department patient visit PHYSICIAN ANA [facility] Start: 11-28-2023 End: 11-28-2023 Office outpatient new 30 minutes Cherry Helm BLUE LINE OPERATOR-FOUNTAIN HELPER Work Phone: [facility] Comment on above: Palpitations (Primar y Dx); Chest pain, unspecified type; Dyspnea on exertion Start: 10-24-2023 End: 10-24-2023 Emergency department patient visit CONCHITA Meraz [facility] Start: 02-25-2023 End: 02-25-[address] [facility] [place]: Start: 12-24-2021 End: 12-24-2021 Emergency department patient visit Conchita Mancia MD Work Phone: [facility] ED Comment on above: Encounter for medica tion refill (Primary Dx) Plan of Treatment Date Care Activity Detail Author Start: 03-28-2025 Adult BMI Screening Adult BMI Screening [facility] Start: 03-28-2025 Tobacco Screening Tobacco Screening [facility] Start: 12-01-2024 End: 12-01-2024 Patient encounter procedure 12/01/2024 10:30 AM EST Office Visit [facility] [address] [place] [id number] Cherry Helm APRN-FOUNTAIN HELPER [address] [place] [address] [facility] Start: 11-28-2024 Adult BMI Follow Up Plan Adult BMI Follow Up Plan [facility] Start: 11-28-2024 Adult BMI Screening Adult BMI Screening [facility] Start: 11-28-2024 Tobacco Screening Tobacco Screening [facility] Start: 06-15-2024 Influenza vaccination Influenza Vaccine [facility] Start: 03-28-2024 End: 03-28-2025 XR Lumbar spine 2 or 3 Views X-ray spine lumbar 2 or 3 views Imaging Routine Chronic midline low back pain without sciatica Expected: 03/28/2024, Expires: 03/28/2025 [facility] Work Phone: Comment on above: Expected: 03/28/2024, Expires: 5 Start: 03-28-2024 End: 03-28-2025 XR Thoracic spine 3 Views X-ray spine thoracic 3 views Imaging Routine Midline thoracic back pain, unspecified chronicity Expected: 03/28/2024, Expires: 03/28/2025 [facility] Comment on above: Expected: 03/28/2024, Expires: 5 Start: 12-07-2023 End: 12-07-2023 Patient encounter procedure [facility] Start: 11-28-2023 End: 11-27-2024 CBC W Auto Differential panel - Blood [email or web address] Work Phone: Comment on above: Expected: 11/28/2023, Expires: Start: 11-28-2023 End: 11-28-2024 Echo complete W/O contrast Echo complete W/O contrast Echocardiography Routine Palpitations Chest pain, unspecified type Dyspnea on exertion Expected: 11/28/2023, Expires: 11/28/2024 [facility] Comment on above: Expected: 11/28/2023, Expires: Start: 11-28-2023 End: 11-28-2024 Holter monitor study Holter monitor 24-48 hour Cardiac Services Routine Palpitations Chest pain, unspecified type Dyspnea on exertion Expected: 11/28/2023, Expires: 11/28/2024 [facility] Comment on above: Expected: 11/28/2023, Expires: 5 Start: 11-28-2023 End: 11-27-2024 Lipid 1996 panel - Serum or Plasma [facility] Comment on above: Expected: 11/28/2023, Expires: Start: 11-28-2023 End: 11-27-2024 Thyroid profile includes TSH FT4 [facility] Comment on above: Expected: 11/28/2023, Expires: 5 Start: 06-15-2023 Influenza vaccination Influenza Vaccine [facility] Start: 06-15-2021 Influenza vaccination Flu vaccine (#1) [facility] Start: 2008 DTaP,Tdap and Td Vaccines (1 - Tdap) DTaP,Tdap and Td Vaccines (1 - Tdap) [facility] Start: 2001 Depression [facility]ening [facility] Screening [facility] Start: 1994 COVID-19 Vaccine (1) COVID-19 Vaccine (1) [facility] Start: 1989 Tobacco Counseling Tobacco Counseling [facility] End: 11-27-2024 Comprehensive metabolic 2000 panel - Serum or Plasma Comprehensive metabolic panel Lab Routine Palpitations Chest pain, unspecified type Dyspnea on exertion 1 Occurrences starting 11/28/2023 until 11/27/2024 [facility] Comment on above: 1 Occurrences starting 11/28/2023 until 11/27/2024 Comprehensive metabolic 2000 panel - Serum or Plasma Comprehensive metabolic panel Lab Routine Palpitations Chest pain, unspecified type Dyspnea on exertion 11/28/2023 10:01 AM EST [facility] Payers Date Payer Category Payer Medicare [employer] MED[employer]ARE [employer] MEDICARE ADVANTAGE PPO [id number] 2022-Present [phone] [address] [address] [place] [address] [id number] 2021 Medicare [id number] 1989 Unknown [id number] 1989 Unknown [id number] 1989 Unknown [id number] 1989 Unknown [id number] 1960 Medicare [id number] Social History Date Type Detail Facility Start: 12-24-2021 Tobacco smoking stat [facility] Never smoked tobacco [employer] Work Phone: Start: 12-24-2021 End: 11-28-2023 Tobacco use and exposure Smokeless tobacco non-user [employer] Phone: Start: 12-24-2021 End: 11-28-2023 Alcohol intake Ex-drinker (finding) [employer] Phone: Start: 1990 Sex Assigned At Not on file [employer] Phone: Exposure to SARS-CoV -2 (event) Not sure [employer] Phone: Start: 11-28-2023 Tobacco smoking stat [facility] Smokes tobacco daily [facility] History of tobacco use Tobacco U se Types Packs/Day Years Used Date Smoking Tobacco: Every Day Vaping/E-cigarettes Smokeless Tobacco: Never [email or web address] Start: 11-02-2020 End: 03-28-2024 History of Social function [email or web address] Start: 11-02-2020 End: 03-28-2024 Tobacco use panel [facility] Childcare Unknown [facility] History of Present illness Narrative 03-28-2024 Cherry Helm APRN-FOUNTAIN HELPER - 03/28/2024 9:15 AM EDT Note Date & Type Note Facility 03-28-2024 History of Presen t illness Narrative Images from the original note were not included. [id number] [facility] [id number] SUBJECTIVE: Patient ID: Shantelle Hooks is a 33 y.o. male. Patient presents to the office for complaints of chronic back pain since 2020. Patient was on a one board and fell. He has been having lower and mid back pain since then. He has been seeing a chiropractor with no relief. Pain is bad at night. It hurst when he works out. He also has noticed ringing in his left ear for a few months. Would like to see ENT. The following portions of the patient's history were reviewed and updated as appropriate: allergies, current medications, past family history, past medical history, past social history, past surgical history and problem list. REVIEW OF SYSTEMS: Review of Systems Constitutional: Negative for fatigue, fever and unexpected weight change. HENT: Positive for tinnitus. Negative for congestion, ear pain, sinus pressure, sinus pain and sore throat. Eyes: Negative for photophobia, pain, discharge and visual disturbance. Respiratory: Negative for cough and shortness of breath. Cardiovascular: Negative for chest pain, palpitations and leg swelling. Gastrointestinal: Negative for abdominal pain, diarrhea, nausea and vomiting. Endocrine: Negative for polydipsia, polyphagia and polyuria. Genitourinary: Negative for difficulty urinating, frequency, hematuria and urgency. Musculoskeletal: Positive for back pain. Negative for arthralgias, gait problem, joint swelling and neck pain. Skin: Negative for pallor and rash. Neurological: Negative for dizziness, weakness, light-headedness and numbness. Psychiatric/Behavioral: Negative for sleep disturbance. The patient is not nervous/anxious. PHYSICAL EXAMINATION: Vitals: 03/28/24 0912 BP: 116/72 Pulse: 88 Resp: 16 SpO2: 98% Weight: 88.9 kg (196 lb) Physical Exam Constitutional: Appearance: He is [...] normal. Breath sounds: Normal breath sounds. Musculoskeletal: General: Tenderness present. Normal range of motion. Cervical back: Normal range of motion. Skin: General: Skin is warm and dry. Neurological: Mental Status: He is alert and oriented to person, place, and time. Psychiatric: Mood and Affect: Mood normal. ASSESSMENT/PLAN: Shantelle was seen today for tinnitus. Diagnoses and all orders for this visit: Tinnitus of right ear - [facility] - [place], [place]; Future Midline thoracic back pain, unspecified chronicity - X-ray spine thoracic 3 views; Future Chronic midline low back pain without sciatica - X-ray spine lumbar 2 or 3 views; Future Follow-up: Referral ENT X-ray thoracic and lumbar spine May need PT Will call with results Keep routine appointments Patient noted to have elevated BMI and the following intervention(s) were applied: encouragement to exercise. LUCIA Zuniga 03/28/24 0934 documented in this encounter [facility] History of Present illness Narrative 11-28-2023 LUCIA Zuniga - 11/28/2023 8:30 AM EST Note Date & Type Note Facility 11-28-2023 History of Present illness Narrative Images from the original note were not included. [address] [facility] [address] SUBJECTIVE: Patient ID: Shantelle Hooks [...] Zuniga 11/28/23 0901 documented in this encounter [facility] Evaluation note Note Date & Type Note Facility Evaluation note Diagnosis Encounter for medication refill- Primary Issue of repeat prescriptions documented in this encounter [employer] Phone: Evaluation note Note Date & Type Note Facility Evaluation note Diagnosis Tinnitus of right ear- Primary Midline thoracic back pain, unspecified chronicity Chronic midline low back pain without sciatica documented in this encounter [facility] Evaluation note Note Date & Type Note Facility Evaluation note Diagnosis Palpitations- Primary Chest pain, unspecified type Dyspnea on exertion Other dyspnea and respiratory abnormality documented in this encounter [facility] Discharge instructions InstructionsAttachments Note Date [...] cannot be sent through Care Everywhere.Medication Refill (Latvian)documented in this encounter [employer] Phone: Instructions Attachments Note Date & Type Note Facility Instructions The following attachments cannot be sent through Care Everywhere.Exercises for Upper Back Pain (Latvian)documented in this encounter [facility] Instructions Attachments Note Date & Type Note Facility Instructions The following attachments cannot be sent through Care Everywhere.Palpitations (Latvian)documented [facility] this encounter [email or web address] Reason for referral (narrative) Consultation (Routine) - Authorized Note Date & Type Note Facility Reason for referral (narrati ve) Specialty Diagnoses / Procedures Referred By Marbin t Referred To Contact Otolaryngology Diagnoses Tinnitus of right ear Cherry Helm APRN-CNP [address] [place] [address] Antoinette Espinoza MD [address] [facility] [address] [place] [address] Referral ID Status Reason Start Date Expiration Date Visits Requested Visits Authorized [id number] Authorized Specialty Services Required 03/28/2024 03/28/2025 1 1 [facility] Summary Purpose Family History No Family [...] Echo complete W/O contrast Cherry Helm APRN-CNP [address] [place] [address] [id number] [place] [address] Phone: [phone] Referral ID Status Reason Start Date Expiration Date V isits Requested Visits Authorized [id number] Pending Review 11/28/2023 11/27/2024 1 1 Specialty Diagnoses / Procedures Referred By Contac t Referred To Contact Diagnoses Palpitations Chest pain, unspecified type Dyspnea on exertion Procedures Holter monitor 24-48 hour Cherry Helm APRN-CNP [address] [place] [address] [id number] [place] [address] Phone: [phone] Referral ID Status Reason Start Date Expiration Date V isits Requested Visits Authorized [id number] Pending Review 11/28/2023 11/27/2024 1 1 Specialty Diagnoses / Procedures Referred By Contac t Referred To Contact Diagnoses Palpitations Chest pain, unspecified type Dyspnea on exertion Procedures ECG 12 lead Cherry Helm APRN-CNP [address] [place] [address] Referral ID Status Reason Start Date Expiration Date V isits Requested Visits Authorized [id number] Pending Review 11/28/2023 11/27/2024 1 1 Additional Source Comments Reason for Visit (unrecogniz ed section and content) Reason Comments Medication Refill effexor XR 75mg caps ulricki ran out; has been breaking them in half Reason Comments Tinnitus Reason Comments New Patient Ordered Prescriptions (unrec ognized section and content) Prescription Sig Dispensed Refills Start Date End Da te venlafaxine (EFFEXOR XR) 75 MG extended release capsule Take 1 capsule by mouth daily 30 capsule 0 12/24/2021 01/23/2022 Care Teams (unrecognized sec tion and content) Resource Management Specialist Relationship Specialty Start Date End Date Conchita Mancia MD [address] [place] [address] PCP - General Psychiatry 12/24/21 Resource Management Specialist Relationship Specialty Start Date End Date Cherry Helm, [employer] [address] [place] [address] PCP - General Family Medicine 11/28/23 Resource Management Specialist Relationship Specialty Start Date End Date Cherry Helm APRN-FOUNTAIN HELPER [address] [place] [address] PCP - General Family Medicine 11/28/23 (unrecognized sect ion and content) No Status Records FoundNo Status Records FoundNo Status Records FoundNo Status Records Found INFORMATION SOURCE (unrecogn ized section and content) DATE CREATED AUTHOR 02/28/2023 [facility] DATE CREATED AUTHOR AUTHOR'S ORGANIZ ATION 10/26/2023 [facility] DATE CREATED AUTHOR AUTHOR'S ORGANIZ ATION 05/23/2024 [facility] DATE CREATED AUTHOR AUTHOR'S ORGANIZ ATION 10/04/2024 [facility] FOR RECORDS PERTAINING TO PATIENTS WHO [...] BE BASED ON THE PRIMARY CLINICAL RECORDS. [facility] provides no warranty or guarantee of the accuracy or completeness of information in this document.
--- NOTE | 2024-12-29 19:40 | ECG_ITS ---
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
--- NOTE | 2024-12-29 19:42 | ED.SOB1 ---
HPI - SOB/Dyspnea General Chief Complaint: Shortness of Breath/Dyspnea Stated Complaint: SHORT OF BREATH Time Seen by Provider: 12/29/24 19:28 Source: patient Mode of arrival: walk-in History of Present Illness HPI Narrative: Patient is a 34-year-old male who presents to the emergency department for evaluation of shortness of breath for the last 2 weeks. He further complains of discomfort in a tooth in the left mandible that is going to be extracted tomorrow. He states when he scheduled the appointment he was told to come to the emergency department to be evaluated for the shortness of breath. He denies any cough, fevers, sputum production or hemoptysis. He has no complaints of leg swelling and has no history of DVT or PE. He further complains of difficulty sleeping recently and believes that a tooth infection is causing him to be restless. He states he was feeling anxious today when he was having difficulty scheduling the dental appointment. He states he used to have panic attacks years ago but has not had any recently. No medications taken prior to arrival for his symptoms. Related Data Home Medications ?Medication ?Instructions ?Recorded ?Confirmed venlafaxine 75 mg capsule,extended 75 mg PO DAILY 03/26/23 11/17/23 release 24 hr Previous Rx's ?Medication ?Instructions ?Recorded clindamycin HCl 150 mg capsule 300 mg (2 x 150 mg) PO Q6H 10 days 12/29/24 #80 caps hydroxyzine pamoate 25 mg capsule 25 mg PO Q6H PRN anxiety or 12/29/24 (Vistaril) insomnia #12 caps Allergies Allergy/AdvReac Type Severity Reaction Status Date / Time doxycycline Allergy Mild shortness Verified 10/01/24 21:53 of breath Review of Systems ROS Constitutional Denies: fever or chills Ears, nose, mouth, and throat Reports: mouth pain; Denies: throat pain or nasal congestion Cardiovascular Denies: chest pain Respiratory Reports: shortness of breath; Denies: cough or coughing up blood Gastrointestinal Denies: abdominal pain, nausea or vomiting Musculoskeletal Denies: back pain or neck pain Integumentary/Breast Denies: rash Neurological Denies: numbness in extremities or weakness in extremities Hematologic/Lymphatic Denies: easy bruising or easy bleeding PFSH PFSH Social History Little interest or pleasure in doing things: not at all Feeling down, depressed, or hopeless: not at all Exam Narrative Exam Narrative: Gen.: Awake, alert, in no distress Head: Normocephalic, atraumatic ENT: Moist mucous membranes, tooth number 16 with hole in the side of the tooth, no visible purulence or drainage. No dental abscess noted. No trismus or drooling. Clear speech. No redness or swelling under the tongue Respiratory: No respiratory distress, lungs clear bilaterally. No coughing noted. No wheezing or rhonchi Cardio: Regular rate and rhythm Extremities: Moves extremities equally, no pedal edema Psych: Normal mood and affect Neuro: No focal neuro deficit Skin: Warm, dry, intact Constitutional Vital Signs, click to edit/add: Last Vital Signs Temp 98 F 12/29/24 19:29 Pulse 64 12/29/24 20:00 Resp 16 12/29/24 20:00 BP 109/65 12/29/24 20:00 Pulse Ox 96 12/29/24 20:00 O2 Del Method Room Air 12/29/24 20:00 Course Vital Signs Vital signs: Vital Signs Temperature 98 F 12/29/24 19:29 Pulse Rate 68 12/29/24 19:29 Respiratory Rate 20 12/29/24 19:29 Blood Pressure 134/83 12/29/24 19:29 Pulse Oximetry 98 12/29/24 19:29 Temperature 98 F 12/29/24 19:29 Pulse Rate 64 12/29/24 20:00 Respiratory Rate 16 12/29/24 20:00 Blood Pressure 109/65 12/29/24 20:00 Pulse Oximetry 96 12/29/24 20:00 Oxygen Delivery Method Room Air 12/29/24 20:00 MDM - SOB/Dyspnea MDM Narrative Medical decision making narrative: This patient has ongoing shortness of breath for the last 2 weeks associated with normal vital signs and no PE risk factors. He has a PERC score of 0. EKG, chest x-ray and labs are unremarkable. No evidence of dental abscess at this time. Patient started on antibiotics for possible dental infection, first dose given in the ER. Suspect anxiety may be playing a role in his shortness of breath and racing thoughts/insomnia. Hydroxyzine given for home as well. Follow-up closely with PCP and return to the ER if symptoms change or worsen SHARED APC VISIT, PHYSICIAN ATTESTATION: [id number] I performed a substantive part of the MDM during the patient?s E/M visit. I personally evaluated and examined the patient. I personally made or approved the documented management plan and acknowledge its risk of complications. Medical Records Attestation: I reviewed the patient's medical records. Lab Data Attestation: I reviewed the patient's lab results. Labs: Lab Results 12/29/24 Range/Units 19:48 WBC 7.9 (4.0-11.0) 10^3/uL RBC 5.13 (4.70-6.10) 10^6/uL Hgb 15.2 (14.0-18.0) g/dL Hct 45.1 (42.0-54.0) % MCV 87.9 (80.0-94.0) fL MCH 29.6 (25.9-34.0) pg MCHC 33.7 (29.9-35.2) g/dL RDW 12.7 (11.0-15.0) % Plt Count 240 (150-450) 10^3/uL MPV 10.7 (9.5-13.5) fL Neut % (Auto) 56.8 (43.0-75.0) % Lymph % (Auto) 29.3 (20.5-60.0) % [place] % (Auto) 9.1 (1.7-12.0) % Eos % (Auto) 4.4 (0.9-7.0) % Baso % (Auto) 0.3 (0.2-2.0) % Neut # (Auto) 4.5 (1.4-6.5) 10^3/uL Lymph # (Auto) 2.3 (1.2-3.8) 10^3/uL [place] # (Auto) 0.7 (0.3-0.8) 10^3/uL Eos # (Auto) 0.4 (0.0-0.7) 10^3/uL Baso # (Auto) 0.0 (0.0-0.1) 10^3/uL Abs Immat Gran (auto) 0.01 (0.00-0.03) 10^3/uL Imm/Tot Granulo (auto) 0.1 (0.0-0.5) % Sodium 137 (136-145) mmol/L Potassium 4.0 (3.5-5.1) mmol/L Chloride 101 (98-107) mmol/L Carbon Dioxide 28.7 (21.0-32.0) mmol/L Anion Gap 11.3 BUN 19.0 H (7.0-18.0) mg/dL Creatinine 1.14 (0.70-1.30) mg/dL Est GFR ( Amer) >60 (>=60 mL/min/1.73m^2) Est GFR (Non-Af Amer) >60 (>=60 mL/min/1.73m^2) BUN/Creatinine Ratio 16.7 Glucose 95 (74-106) mg/dL Calcium 9.4 (8.5-10.1) mg/dL Troponin I High Sens <4.0 L (4.0-76.1) pg/mL TSH 1.320 (0.358-3.740) uIU/mL Imaging Data Chest x-ray: Attestation: I have reviewed the pertinent imaging results. ECG Data Attestation: I personally reviewed and interpreted this ECG as follows: (Normal sinus rhythm at a rate of 56, no acute ST elevation or ectopy. EKG reviewed by attending physician) Discharge Plan Discharge Chief Complaint: Shortness of Breath/Dyspnea Clinical Impression: Shortness of breath, Pain, dental, Insomnia Patient Disposition: Home, Self-Care Time of Disposition Decision: 20:49 Condition: Good Prescriptions / Home Meds: New clindamycin HCl 150 mg capsule 300 mg PO Q6H 10 Days Qty: 80 0RF hydroxyzine pamoate [Vistaril] 25 mg capsule 25 mg PO Q6H PRN (Reason: anxiety or insomnia) Qty: 12 0RF No Action venlafaxine 75 mg capsule,extended release 24hr 75 mg PO DAILY Print Language: Slovak Instructions: Toothache (ED), Shortness of Breath (ED) Referrals: Naomi Helm NP [Primary Care Provider] - 1 week
[2024-12-29 20:00] VITALS: BP 109/65; PULSE 64; O2SAT 96
[2024-12-29 20:20] LABS: Basophils Percent Auto 0.3 % (0.2-2.0); Eosinophils Absolute Auto 0.4 10^3/uL (0.0-0.7); Eosinophils Percent Auto 4.4 % (0.9-7.0); Hematocrit 45.1 % (42.0-54.0); Hemoglobin 15.2 g/dL (14.0-18.0); Immature Granulocytes Abs Auto 0.01 10^3/uL (0.00-0.03); Immature Granulocytes Pct Auto 0.1 % (0.0-0.5); Lymphocytes Absolute Auto 2.3 10^3/uL (1.2-3.8); Lymphocytes Percent Auto 29.3 % (20.5-60.0); Mean Corpuscular HGB Conc 33.7 g/dL (29.9-35.2); Mean Corpuscular Hemoglobin 29.6 pg (25.9-34.0); Mean Corpuscular Volume 87.9 fL (80.0-94.0); Mean Platelet Volume 10.7 fL (9.5-13.5); Monocytes Absolute Auto 0.7 10^3/uL (0.3-0.8); Monocytes Percent Auto 9.1 % (1.7-12.0); Neutrophils Absolute Auto 4.5 10^3/uL (1.4-6.5); Neutrophils Percent Auto 56.8 % (43.0-75.0); Platelet Count 240 10^3/uL (150-450); Red Blood Count 5.13 10^6/uL (4.70-6.10); Red Cell Distribution Width 12.7 % (11.0-15.0); White Blood Count 7.9 10^3/uL (4.0-11.0)
[2024-12-29 20:28] LABS: Troponin I High Sensitivity <4.0 pg/mL (4.0-76.1)
[2024-12-29 20:36] LABS: Anion Gap 11.3; BUN Creatinine Ratio 16.7; Calcium 9.4 mg/dL (8.5-10.1); Carbon Dioxide 28.7 mmol/L (21.0-32.0); Chloride 101 mmol/L (98-107); Estimated GFR (African America >60 (>=60 mL/min/1.73m^2); Estimated GFR (Non-African Ame >60 (>=60 mL/min/1.73m^2); Glucose 95 mg/dL (74-106); Sodium 137 mmol/L (136-145)
[2024-12-29] MEDS: HYDROXYZINE PAMOATE 25 MG CAPSULE PO (21:01)
[2024-12-29 21:02] VITALS: BP 125/65; PULSE 56; TEMP 37; O2SAT 100
[2024-12-29] MEDS: CLINDAMYCIN HCL 150 MG CAPSULE 300 MG PO (21:02)
== END 2024-12-29 21:05 | disposition home or self-care (01) ==
PROVIDERS: Physician Assistant; Emergency Provider Emergency Medicine; PCP Nurse Practitioner Family
DX: R06.02 Shortness of breath (principal); K08.89 Other specified disorders of teeth and supporting structures; G47.00 Insomnia, unspecified
CPT/HCPCS: 36415; 71045; 80048; 84443; 84484; 85025; 93005; 99285; Q0177

== ENCOUNTER 2025-01-13 08:22 | Outpatient (OUT) | payer MEDICARE, SELFPAY ==
--- NOTE | 2025-01-13 08:24 | MR_ITS ---
The [address] [address] Patient Name: SHANTELLE HOOKS MRN: [id number] date: 1990 Sex: M Assigned Patient Location: MRI Current Patient Location: MRI Accession/Order Number: [id number] Exam Date: 01/13/2025 09:25 Report Date: 01/13/2025 09:38 At the request of: BOZENA RAMIREZ MD Procedure: MR lumbar spine wo con MRI LUMBAR SPINE WITHOUT CONTRAST COMPARISON: Plain films 11/21/2024 CLINICAL DATA: Chronic low back pain with radiation to the right buttocks. No recent injury. Multiecho imaging in the axial and sagittal plane was performed without contrast. Alignment is maintained in the sagittal plane. No acute compression fractures or marrow edema are noted. The conus medullaris is normal in caliber, position and signal intensity. A small hemangioma is present at L2 anteriorly on the left. No paraspinal soft tissue abnormalities are seen. At T12-L1 and L1-2, the discs are normal in height and signal intensity. No disc bulge or herniation is identified. No central or foraminal stenosis is noted. At L2-3 and L3-4, the discs are normal in height and signal intensity. There is minimal annular disc bulging toward the neural foramen. There is also minor facet and ligamentous hypertrophy. There is slight thecal sac effacement and minimal inferior foraminal encroachment. At L4-5, there is disc desiccation. Disc osteophytic bulging is visualized. There is increased signal within the central disc posteriorly that could be an annular tear. There is facet and ligamentous hypertrophy. Moderate thecal sac effacement is visualized. There is also moderate bilateral foraminal encroachment. At the lumbosacral junction, there is slight loss of disc height and disc desiccation. Annular disc bulging is present, slightly asymmetric through the right parasagittal region to the neural foramen. Minor endplate spurring is also noted. There is subtle thecal sac effacement and contact of the traversing right S1 nerve root. There is mild facet hypertrophy. There is mild to moderate foraminal encroachment, greater on the right. 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
== END 2025-01-13 08:23 | disposition home or self-care (01) ==
LOC: MRI 08:22
PROVIDERS: PCP Nurse Practitioner Family; Visit Provider Orthopaedic Surgery Orthopaedic Surgery of the Spine
DX: M54.50 Low back pain, unspecified (principal); M43.16 Spondylolisthesis, lumbar region; M51.369 Other intervertebral disc degeneration, lumbar region without mention of lumbar back pain or lower extremity pain
CPT/HCPCS: 72148

== ENCOUNTER 2025-03-05 10:58 | Emergency (ER) | payer MEDICARE, SELFPAY ==
--- OUTSIDE RECORDS SUMMARY | 2024-05-15 06:20 | XMS_ITS ---
Author Organization The [facility] in [place] Address [address] [place] [address] Care Team Providers Care Organ Pipe Maker Metal Name Role Phone Naomi Helm CNP Primary Care Provider Jane vailaLuana Langston Unavailable [phone] Encounters Encounter Location Date Provider Diagnosis [facility] [place] [address] [place] [address] 05/15/2024 Luana Da Silva Plan Of Treatment No Information Progress Notes * JESSEE KimberlyOB:1990 (33 yo M)Acc No.[id number]:05/15/2024 New Patient Patient: Parviz DOMINGUEZ Provider: Nabeel Da Silva CNP :1990 A ge:33 Y S ex:Male Date:05/15/2024 Address:[address] [place], [place] [id number] Pcp:Naomi Helm CNP Subjective: * Chief Complaints: * * Active Problem List ?Problem List has not been verified* Medical History: Objective: * Vitals: Assessment: Plan: * Treatment: * * Sign off status: Completed Visit Status: L ATE CANC (Late Cancel) true * Provider: Nabeel Da Silva CNP Date: 05/15/2024 Generated for Printi ng/Faxing/eTransmitting on: 03/05/2025 11:07 AM EDT
--- OUTSIDE RECORDS SUMMARY | 2024-05-15 07:20 | XMS_ITS ---
Author Organization The [facility] in [place] Address [address] [place] [address] Care Team Providers Care Traveling Construction Superintendent Name Role Phone Naomi Helm CNP Primary Care Provider Jane alexiailaJosie Otoole Unavailable REASON FOR VISIT Audio Encounters Encounter Location Date Provider Diagnosis [facility] [place] [address] [place] [address] 05/15/2024 Josie Nolan Plan Of Treatment No Information Progress Notes * Ishmael PEÑALOZAaggieElliottOB:1990 (33 yo M)Acc No.[id number]:05/15/2024 Progress Notes Patient: Parviz DOMINGUEZ Provider: Gladys Mackenzie :1990 A ge:33 Y S ex:Male Date:05/15/2024 Address:[address] [place], [place] [id number] Pcp:Naomi Helm CNP Subjective: * Chief Complaints: * 1 . Audio. * Active Problem List ?Problem List has not been verified* Medical History: Objective: * Vitals: Assessment: Plan: * Treatment: * * Sign off status: Completed Visit Status: L ATE CANC (Late Cancel) true * Provider: Gladys Mackenzie Date: 0 05/15/2024 Generated for Printi ng/Faxing/eTransmitting on: 0 03/05/2025 11:08 AM EDT
--- OUTSIDE RECORDS SUMMARY | 2024-05-21 08:34 | XMS_ITS ---
Author Name Auto Generated Organization [facility] Care Team Providers Care Solar Applications Development Engineer Name Role Phone EREN SHEA Attending Unavailable CHERRY KNIGHT Referring Unavailable PROBLEMS No Problem Records Found PROCEDURES No Procedure Records Found RESULTS No Result Records Found ALLERGIES No Allergies Records Found ENCOUNTERS ADMIT/DISCHARGE ACCOUNT NUMBER ADMITTING ENCOUNTER CLASS LOCATION SOURCE 05/21/2024/ 4 [id number] Ambulatory Building:[facility] EPIC PAYERS ENCOUNTER GUARANTOR PAYER SUBSCRIBER SOURCE 05/21/2024 SHANTELLE ELLIOTT: [place], [place] [address]Dfr: () Primary Insurance:UNITED HEALTHCARE MEDICAREPolicy Number: [id number] Date:2023-10-15 SHANTELLE ELLIOTT: [id number] [place] [address] [facility] EPIC
--- OUTSIDE RECORDS SUMMARY | 2024-10-31 06:10 | XMS_ITS ---
Author Organization [facility] Address [address] [place] [address] Care Team Providers Care Race Steward Name Role Phone Johan Duffy Unavailable [phone] REASON FOR VISIT LOW BACK PAIN Encounters Encounter Location Date Provider Diagnosis [facility] [address] [place] [address] [place] [address] 10/31/2024 Johan Duffy Plan Of Treatment No Information Progress Notes * MAXIMINO HOOKSOB:1990 (34 yo M)Acc No.[id number]:10/31/2024 Patient: SHANTELLE DOMINGUEZ Provider: Kt Dye MD, PhD :1990 A ge:33 Y S ex:Male Date:10/31/2024 Address:[address] [place], [place] [id number] Subjective: * Chief Complaints: * 1 . LOW BACK PAIN. * Medical History: Objective: * Vitals: Assessment: Plan: * Treatment: Forms: * Images: * Electronic signature of Ho Duffy MD, PHD on 03/05/2025 at 11:08 AM EDT Sign off status: Pending * Provider: Kt Dye MD, PhD Date: 0 10/31/2024 Generated for Yung casanova/Hannah/eTdimitrismyamil on: 0 03/05/2025 11:08 AM EDT
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
[2025-03-05 11:02] VITALS: BP 122/63; PULSE 80; TEMP 37.5; O2SAT 99; BMI 27.2
--- OUTSIDE RECORDS SUMMARY | 2025-03-05 11:07 | XMS_ITS | Encounter Summary ---
Author Organization [email or web address] s [employer] Address [id number] [address] [place] [address] Care Team Providers Care Superintendent Production Name Role Phone Naomi Helm BENEFITS REPRESENTATIVE-BEVEL FACE STONER AND POLISHER Primary Care Provide r Encounter Details Date Type Department Care Team (Late st Contact Info) Description 05/22/2024 Orders Only [facility] [address] [place] [address] Argelai Li LPN Tinnitus of right ear Social History Tobacco Use Types Packs/Day Years Used Date Smoking Tobacco: Every Day Vaping/E-cigarettes Smokeless Tobacco: Never Alcohol Use Standard Drinks/Week Comments Not Currently 0 (1 standard drink = 0.6 oz pur e alcohol) Childcare Answer Date Recorded Childcare Unknown 05/18/2020 Employment Answer Date Recorded Employment Unknown 05/18/2020 Hunger Screening Answer Date Recorded Within the past 12 months we worried whether our food would run out before we got money to buy more. Never True 12/31/2023 Within the past 12 months th e food we bought just didn't last and we didn't have money to get more. Never True 12/31/2023 Purpose - Life Answer Date Recorded Purpose and direction in life Unknown Sex and Gender Information Value Date Recorded Sex Assigned at Not on file Legal Sex Male 9:24 PM EDT Gender Identity Not on file Sexual Orientation Not on file documented as of this encounter Plan of Treatment Not on file documented as of this encounter Procedures Procedure Name Priority Date/Time Associated Diagnosis Comments AMB REFERRAL TO ENT Routine 05/21/2024 Tinnitus of right ear documented in this encounter Results * [facility] [place], [place] (05/21/2024) Naomi Helm APRN-NIDHI OUTPATIENT REFERRAL O RDERABLES Edited Result - Final MANUALLY TRANSCRIBED RESULTS documented in this encounter Visit Diagnoses Diagnosis Tinnitus of right ear documented in this encounter Additional Health Concerns Assessment Noted Time A Body Mass Index follow-up plan has been documented for the patient 03/28/2024 9:34 AM EDT documented as of this encounter Care Teams Superintendent Production Relationship Specialty Start Date End Date Naomi Helm APRN-CNP [address] [place] [id number] PCP - General Family Medicine 11/28/23 documented as of this encounter
--- OUTSIDE RECORDS SUMMARY | 2025-03-05 11:07 | XMS_ITS | Clinical Summary ---
Author Organization [facility] [employer] Sy [employer] Address [id number] [address] [place] [address] Care Team Providers Care Matrix Drier Tender Name Role Phone Naomi Helm APRN-NIDHI Primary Care Provide r Allergies Active Allergy Reactions Criticality Noted Date Comments Doxycycline 05/18/2020 Medications No known medications Active Problems No known active problems Encounters Date Type Department Care Team Description 01/13/2025 Orders Only [facility] [address] [place] [address] Naomi Helm APRN-CNP from Last 3 Months Family History Medical History Relation Name Comments Cardiomyopathy Brother Pancreatic cancer Mother Relation Name Status Comments Brother Mother Social History Tobacco Use Types Packs/Day Years [...] on file Sexual Orientation Not on file Last Filed Vital Signs Vital Sign Reading Time Taken Comments Blood Pressure 116/72 03/28/2024 9:12 AM EDT Pulse 88 03/28/2024 9:12 AM EDT Temperature 37.1 C (98.8 F) 12/31/2023 1:39 AM EDT Respiratory Rate 16 03/28/2024 9:12 AM EDT Oxygen Saturation 98% 03/28/2024 9:12 AM EDT Inhaled Oxygen Concentration - - Weight 88.9 kg (196 lb) 03/28/2024 9:12 AM EDT Height 180.3 cm (5' 11 ) 12/31/2023 1:39 AM EDT Body Mass Index 27.34 12/31/2023 1:39 AM EDT Plan of Treatment Health Maintenance Due Date Last Done Comments Tobacco Counseling 1989 Depression Screening 2001 DTaP,Tdap and Td Vaccines (1 - Tdap) 2008 Adult BMI Screening 03/28/2025 03/28/2024 Tobacco Screening 03/28/2025 03/28/2024 Influenza Vaccine 06/15/2025 Medical Devices Not on file Procedures Procedure Name Priority Date/Time Associated Diagnosis Comments MR LUMBAR SPINE WO CONT Routine 01/13/2025 from Last 3 Months Results * MR lumbar spine without contrast (01/13/2025) Anatomical Region Laterality Modality MSK, Neuro, Spine, L-spine, Spine Covera N/A Magnetic Resonance 01/13/2025 us Scanning Provider External IMG MRI ORDERABLES Fi nal Result from Last 3 Months Insurance [employer] MEDICARE Care Teams Matrix Drier Tender Relationship Specialty Start Date End Date Naomi Helm APRN-NIDHI [address] [place] [address] PCP - General Family Medicine 11/28/23
--- OUTSIDE RECORDS SUMMARY | 2025-03-05 11:07 | XMS_ITS | Encounter Summary ---
Author Organization [facility] Address [facility] [id number] [address] [place] [address] Care Team Providers Care Plastic Outfitter Name Role Phone Naomi Helm APRN-ENGINEERING TECHNICIAN PARKING Primary Care Provide r Encounter Details Date Type Department Care Team (Late st Contact Info) Description 01/13/2025 Orders Only [facility] [address] [place] [address] Naomi Helm APRN-CNP [address] [place] [address] Social History Tobacco Use Types Packs/Day Years [...] MR LUMBAR SPINE WO CONT Routine 01/13/2025 documented in this encounter Results * MR lumbar spine without contrast (01/13/2025) Anatomical Region Laterality Modality MSK, Neuro, Spine, L-spine, Spine Covera N/A Magnetic Resonance 01/13/2025 us Scanning Provider External IMG MRI ORDERABLES Fi nal Result documented in this encounter Visit Diagnoses Not on filedocumented in this encounter Additional Health Concerns Assessment Noted Time A Body Mass Index follow-up plan has been documented for the patient 03/28/2024 9:34 AM EDT documented as of this encounter Care Teams Plastic Outfitter Relationship Specialty Start Date End Date Naomi Helm APRN-ENGINEERING TECHNICIAN PARKING [address] [place] [address] PCP - General Family Medicine 11/28/23 documented as of this encounter
--- OUTSIDE RECORDS SUMMARY | 2025-03-05 11:07 | XMS_ITS | Patient Health Record ---
Author Organization Wilman Frederick MD [facility] Address [address] [place], [place] [address] Care Team Providers Care Veneer Supervisor Name Role Phone MaylinJose Miguel márquez Primary Care Provider Jenni Barnett Unavailable [phone] ALLERGIES Allergen (clinical drug ingredient) Drug/Non Drug Allergy documented on EMR Reaction Allergy Type Onset Date Status DENIES ALLERGY TO LATEX AND IODINE (uncoded) Unknown Allergy Active Doxycycline Calcium rash Drug Allergy Active REASON FOR REFERRAL No Information MEDICATIONS Medication SIG (Take, Route, Frequency, Duration) Notes Start Date End Date Status Protonix 40 MG 1 tablet Orally twic e daily for 30 day(s) 07/09/2014 Active Asmanex 120 Metered Doses 220 MCG/INH 1 puff in the evening Inhalation twice daily 07/06/2014 Active Omeprazole 20 MG 1 capsule Orally twi ce daily for 30 days 02/04/2014 Active PLAN OF TREATMENT No Information Insurance Providers Payer Name Payer Address Payer Phone Subscriber Number Group Number Insured Name Patient Relationship to Insured Coverage Start Date Coverage End Date MEDICARE [address] [place] [address] [id number] SHANTELLE HOOKS Self - patient is the insured MEDICAL (GENERAL) HISTORY Medical History History ICD Code Asthma Hyperlipidemia Allergies Gastritis Eosinophilic esophagitis Hospitalization History Reason Date(Month/Year) Flu 11/2013 chest pain 05/2014
--- OUTSIDE RECORDS SUMMARY | 2025-03-05 11:07 | XMS_ITS | Clinical Summary ---
Author Organization [facility] Address [address] [place] [address] Care Team Providers Care Hebrew Teacher Name Role Phone Naomi Helm SPORTS ACTIVITIES FOUL JUDGE Unavailable [phone] Allergies Active Allergy Reactions Criticality Noted Date Comments Doxycycline Shortness of breath High 05/19/2024 Medications saccharomyces boulardii (Florastor) 250 MG capsule Take 250 mg by mouth in the morning and 250 mg before bedtime. Active Multiple Vitamin (multivitamin) tablet Take 1 tablet by mouth Daily Active Active Problems No known active problems Family History Relation Name Status Comments Father Mother Social History Tobacco Use Types Packs/Day Years Used Date Smoking Tobacco: Never Smokeless Tobacco: Never Tobacco Cessation:Counseling Given: Not Answered Alcohol Use Standard Drinks/Week Comments Not Currently 0 (1 standard drink = 0.6 oz pur e alcohol) Sex and Gender Information Value Date Recorded Sex Assigned at Not on file Legal Sex Male 3:15 PM EDT Gender Identity Not on file Sexual Orientation Not on file Last Filed Vital Signs Vital Sign Reading Time Taken Comments Blood Pressure 115/70 05/21/2024 8:35 AM EDT Pulse - - Temperature - - Respiratory Rate - - Oxygen Saturation - - Inhaled Oxygen Concentration - - Weight 86.6 kg (191 lb) 05/21/2024 8:35 AM EDT Height 180.3 cm (5' 11 ) 05/21/2024 8:35 AM EDT Body Mass Index 26.64 05/21/2024 8:35 AM EDT Plan of Treatment Not on file Insurance [employer] MEDICARE Care Teams Hebrew Teacher Relationship Specialty Start Date End Date Naomi Helm NP Referring Physician Family Medicine 05/21/24
--- OUTSIDE RECORDS SUMMARY | 2025-03-05 11:08 | XMS_ITS | Patient Health Record ---
Author Organization [facility] Address [address] [place] [address] Care Team Providers Care Radio Antenna Installer Name Role Phone Johan Duffy Unavailable [phone] Shona Zhang Unavailable [phone] Allergies Allergen (clinical drug ingredient) Drug/Non Drug Allergy documented on EMR Reaction Allergy Type Onset Date Status doxycycline doxycycline hard to breath Drug Allergy Active Reason For Referral Reason NO AUTH REQ......... .......................NOT SCHEDULED.....................................[facility] MRI LUMBAR TO BE DONE AT [place] Diagnosis 1 Low back pain, unspe cified back pain laterality, unspecified chronicity, unspecified whether sciatica present (M54.50) Referral Organization [facility] Referring Provider First Name Johan Referring Provider Last Name [facility] Lopez Referring Provider Speciality Orthopedic Surgery Referred Organization [facility] Referred Address [address] [place], [place],[address], Procedure 1 MRI Lumbar Spine w/o Dye ([id number]) General Notes Carolyn Cummins 2024 11:48:54 AM >, Fatoumata Resendez 11/21/2024 11:58:44 AM > [facility] ACTIVE AND EFFECTIVE 10/15/24 PER [facility] PROVIDER PORTAL. NO AUTHORIZATION REQUIRED PER [facility] PROVIDER PORTAL. SCANNED INTO CHART AND FAXED TO [facility].Luba Sara 11/21/2024 12:10:51 PM > order connorxed Luba Sara 11/21/2024 12:10:51 PM > Referral Priority Routine Reason REFERRAL FOR [facility] FOR L4-5 NASIM Diagnosis 1 Degeneration of inte rvertebral disc of lumbar region with discogenic back pain and lower extremity pain (M51.362) Referral Organization [facility] Referring Provider First Name Johan Referring Provider Last Name St Lopez Referring Provider Speciality Orthopedic Surgery Referred Organization [facility] Referred Address [address],[place], [place],[address], General Notes Carolyn Cummins 2024 09:45:25 AM >, Carolyn Cummins 02/17/2025 03:56:06 PM >FAXED Referral Priority Routine Medications Medication SIG (Take, Route, Frequency, Duration) [...] Problem Status W/U Status Risk Notes Problem [id number] Lumbar radiculop athy (M54.16) Active confirmed Problem [id number] HNP (herniated nucleus pulposus), lumbar (M51.26) Active confirmed Problem [id number] Spondylolisthesi s of lumbar region (M43.16) Active confirmed Problem [id number] Degeneration of intervertebral disc of lumbosacral region with discogenic back pain and lower extremity pain (M51.372) Active confirmed Vital Signs Height 5'11 in 11/21/2024 Weight 185 lbs 11/21/2024 BMI 25.8 11/21/2024 Encounters Encounter Location Date Provider Diagnosis [facility] [address] [place] [address] [place] [address] 02/13/2025 Johan Duffy Degeneration of intervertebral disc of lumbar region with discogenic back pain and lower extremity pain M51.362 ; Lumbar radiculopathy M54.16 and HNP (herniated nucleus pulposus), lumbar M51.[address] [place] [address] [place] [address] [facility] region M43.16 and Degeneration [...] L1-2, L5-S1 DDD 2. 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 Lumbar Degenerative Disc Disease with Herniation Assessment: [...] not hesitate to contact me. Best regards, 11/21/2024 Other For the patient's chronic low [...] 2. Dynamic L3 spondylolisthesis Plan Of Treatment Pending Test Test Name Order Date Lumbar spine, 4v flex ext - 84823 2024 SFS - Lumbar Spine PT Order, Isometrics & Strenghening w/Modalities as needed, 2-3 times per week for 6 weeks 02/13/2025 Epidural injection - lumbar 02/13/2025 MRI : Lumbosacral Spine W/O Contrast - 7 214711/21/2024 Insurance Providers Payer Name Payer Address Payer Phone Subscriber Number Group Number Insured Name Patient Relationship to Insured Coverage Start Date Coverage End Date [facility] [address] [address] [place] [address] [id number] SHANTELLE PEÑALOZA Self - patient is the insured Medical (General) History Medical History History ICD Code Asthma Bronchitis Gastric Reflux Irritable bowel syndrome Anxiety Depression
--- OUTSIDE RECORDS SUMMARY | 2025-03-05 11:08 | XMS_ITS | Clinical Summary ---
Author Organization [facility] Address [address] [place] [address] Care Team Providers Care Financial Professional Name Role Phone Aaron Mancia MD Primary Care Provider [phone] Allergies Active Allergy Reactions Criticality Noted Date Comments Doxycycline Hives,Swelling 12/24/2021 Medications venlafaxine (EFFEXOR XR) 75 MG extended release capsule Take 1 capsule by mouth daily 30 capsule 12/24/2021 Active Social History Tobacco Use Types Packs/Day Years Used Date Smoking Tobacco: Never Smokeless Tobacco: Never Alcohol Use Standard Drinks/Week Comments Not Currently 0 (1 standard drink = 0.6 oz pur e alcohol) AUDIT-C Answer Date Recorded Q1: How often do you have a drink containing alcohol? Never 10/24/2023 Q2: How many drinks containi ng alcohol do you have on a typical day when you are drinking? Patient does not drink Q3: How often do you have si x or more drinks on one occasion? Never 10/24/2023 Interpersonal Safety Domain Source: IP Abuse Scr eening Answer Date Recorded How often does anyone, vivian bourgeois family and friends, physically hurt you? Not on file 10/24/2023 How often does anyone, vivian bourgeois family and friends, scream or curse at you? Not on file 10/24/2023 How often does anyone, vivian bourgeois family and friends, insult or talk down to you? Not on file 10/24/2023 How often does anyone, vivian bourgeois family and friends, threaten you with harm? Not on file 10/24/2023 Read-Only, Retired: Physical Abuse Denies 10/24/2023 Read-Only, Retired: Verbal Abuse Denies 10/24/2023 Read-Only, Retired: Emotional abuse Denies 10/24/2023 Read-Only, Retired: Financial Abuse Denies 10/24/2023 Read-Only, Retired: Sexual abuse Denies 10/24/2023 Sex and Gender Information Value Date Recorded Sex Assigned at Not on file Legal Sex Male 11:35 AM EST Gender Identity Not on file Sexual Orientation Not on file Last Filed Vital Signs Vital Sign Reading Time Taken Comments Blood Pressure 117/58 10/24/2023 12:14 PM EST Pulse 57 10/24/2023 12:14 PM EST Temperature 36.7 C (98.1 F) 10/24/2023 12:14 PM EST Respiratory Rate 16 10/24/2023 12:14 PM EST Oxygen Saturation 99% 10/24/2023 12:14 PM EST Inhaled Oxygen Concentration - - Weight 78.5 kg (173 lb) 10/24/2023 12:14 PM EST Height 180.3 cm (5' 11 ) 10/24/2023 12:14 PM EST Body Mass Index 24.13 10/24/2023 12:14 PM EST Plan of Treatment Health Maintenance Due Date Last Done Comments DTaP/Tdap/Td vaccine (1 - Tdap) 2008 COVID-19 Vaccine ( - 2023-2 5 season) 2024 Flu vaccine (Season Ended) 2025 Polio vaccine Aged Out No longer elig ible based on patient's age to complete this topic Insurance MEDICARE Care Teams Financial Professional Relationship Specialty Start Date End Date Aaron Mancia MD [address] [phone] PCP - General Psychiatry 12/24/21
--- OUTSIDE RECORDS SUMMARY | 2025-03-05 11:08 | XMS_ITS | Patient Health Record ---
Author Organization [facility] [place] Address [address] [place] [address] Care Team Providers Care Recruiting Operations Consultant Name Role Phone Naomi Helm CNP Primary Care Provider Jane vailable Josie Nolan Unavailable [phone] Luana Modi Unavailable [phone] Reason For Referral No Information Encounters Encounter Location Date Provider Diagnosis [address] [address] 05/15/2024 Luana Modi [address] [address] 05/15/2024 Josie Nolan Plan Of Treatment No Information Insurance Providers Payer Name Payer Address Payer Phone Subscriber Number Group Number Insured Name Patient Relationship to Insured Coverage Start Date Coverage End Date [employer] MEDICARE [address] [address] [place], [place] [id number] Parviz Peñaloza Self - patient is the insured 4
--- OUTSIDE RECORDS SUMMARY | 2025-03-05 11:08 | XMS_ITS | Clinical Summary ---
Author Organization [facility] Address [address] [place] [address] Care Team Providers Care Vegetable Packer Name Role Phone No, Physician Primary Care Provider Unavailabl e Allergies Active Allergy Reactions Criticality Noted Date Comments Doxycycline Anaphylaxis High 01/21/2024 Social History Tobacco Use Types Packs/Day Years Used Date Smoking Tobacco: Never Assessed Sex and Gender Information Value Date Recorded Sex Assigned at Not on file Legal Sex Male 5:29 AM EDT Gender Identity Not on file Sexual Orientation Not on file Last Filed Vital Signs Vital Sign Reading Time Taken Comments Blood Pressure 100/68 01/21/2024 6:15 AM EDT Pulse 60 01/21/2024 6:15 AM EDT Temperature 36.8 C (98.3 F) 01/21/2024 5:33 AM EDT Respiratory Rate 17 01/21/2024 6:15 AM EDT Oxygen Saturation 95% 01/21/2024 6:15 AM EDT Inhaled Oxygen Concentration - - Weight 83 kg (183 lb) 01/21/2024 5:33 AM EDT Height 180.3 cm (5' 11 ) 01/21/2024 5:33 AM EDT Body Mass Index 25.52 01/21/2024 5:33 AM EDT Plan of Treatment Not on file Insurance * Guarantor: Parviz Peñaloza Account Type Relation to Patient Date of Phone Billing Address Personal/Family Self [address] [place], [place] [id number] [facility] [place] [address] Care Teams Vegetable Packer Relationship Specialty Start Date End Date No, Physician [facility] PCP - General 01/21/24
--- NOTE | 2025-03-05 11:14 | ED_ITS ---
HPI HPI - General Adult General Chief complaint: Nausea/Vomiting/Diarrhea Stated complaint: NAUSEA FEVER Time Seen by Provider: 03/05/25 11:01 Source: patient Mode of arrival: walk-in History of Present Illness HPI narrative: 34-year-old male presents for nausea and not feeling well. He thinks he may have food poisoning or stomach virus. He states he had a fever at home but did not check his temperature. He did not have 1 here. Symptoms started last night. He had eaten pizza but nobody else ate it. Related Data Previous Rx's ?Medication ?Instructions ?Recorded ondansetron 4 mg disintegrating 4 mg PO Q6H PRN nausea and 03/05/25 tablet vomiting #20 tabs Allergies Allergy/AdvReac Type Severity Reaction Status Date / Time doxycycline Allergy Mild shortness Verified 10/01/24 21:53 of breath Opioid HPI Opioid Management Most Recent Opioid Data: Last Pain Scale 8 10/01/24, 22:20 Review of Systems ROS Narrative A ten point review of systems is negative except as noted above. PFSH PFSH Social History Little interest or pleasure in doing things: not at all Feeling down, depressed, or hopeless: not at all Exam Narrative Exam Narrative: Nurses note and vital signs reviewed and patient is not hypoxic. General: The patient appears well and in no apparent distress. Patient is resting comfortably on cart. Skin: Warm, dry, no pallor noted. There is no rash noted. Head: Normocephalic, atraumatic Eye: Normal conjunctiva, no drainage Ears, Nose, Mouth, and Throat: oral mucosa is moist. Nares patent. Cardiovascular: Regular Rate and Rhythm Respiratory: Patient is in no distress, no accessory muscle use, lungs are clear to auscultation, no wheezing, rales or rhonchi Back: non-tender GI: Soft and nontender Musculoskeletal: The patient has no evidence of calf tenderness, no pitting edema, symmetrical pulses noted bilaterally Neurological: A&O, normal speech Psychiatric: Cooperative Constitutional Vital Signs, click to edit/add: Last Vital Signs Temp 99.5 F 03/05/25 11:02 Pulse 80 03/05/25 11:02 Resp 18 03/05/25 11:02 BP 122/63 03/05/25 11:02 Pulse Ox 99 05/22/25 11:02 O2 Del Method Room Air 03/05/25 11:02 Course Vital Signs Vital signs: Vital Signs Temperature 99.5 F 03/05/25 11:02 Pulse Rate 80 03/05/25 11:02 Respiratory Rate 18 03/05/25 11:02 Blood Pressure 122/63 03/05/25 11:02 Pulse Oximetry 99 03/05/25 11:02 Oxygen Delivery Method Room Air 03/05/25 11:02 Temperature 99.5 F 03/05/25 11:02 Pulse Rate 80 03/05/25 11:02 Respiratory Rate 18 03/05/25 11:02 Blood Pressure 122/63 03/05/25 11:02 Pulse Oximetry 99 03/05/25 11:02 Oxygen Delivery Method Room Air 03/05/25 11:02 Medical Decision Making MDM Narrative Medical decision making narrative: Blood work is normal. He is feeling improved after being given IV fluids and Zofran and is discharged home with a prescription for Zofran. He was also given a work note. Treatment diagnosis and follow-up were discussed with the patient. Differential Diagnosis Differential Diagnosis: Food poisoning, gastroenteritis, dehydration Lab Data Lab results reviewed: Yes I reviewed the patient's lab results Labs: Lab Results 03/05/25 03/05/25 Range/Units 11:22 11:48 WBC 7.4 (4.0-11.0) 10^3/uL RBC 4.91 (4.70-6.10) 10^6/uL Hgb 15.0 (14.0-18.0) g/dL Hct 44.0 (42.0-54.0) % MCV 89.6 (80.0-94.0) fL MCH 30.5 (25.9-34.0) pg MCHC 34.1 (29.9-35.2) g/dL RDW 12.8 (11.0-15.0) % Plt Count 207 (150-450) 10^3/uL MPV 10.2 (9.5-13.5) fL Seg Neuts % (Manual) 78.0 H (43.0-75.0) Lymphocytes % (Manual) 11.0 L (20.5-60.0) % Monocytes % (Manual) 6.0 (1.7-12.0) % Eosinophils % (Manual) 5.0 (0.9-7.0) % Basophils % (Manual) 0.0 L (0.2-2.0) % Neutrophils # (Manual) 5.77 (1.4-6.5) 10^3/uL Lymphocytes # (Manual) 0.81 L (1.20-3.80) 10^3/uL Monocytes # (Manual) 0.44 (0.30-0.80) 10^3/uL Eosinophils # (Manual) 0.37 (0.00-0.70) 10^3/uL Basophils # (Manual) 0.00 (0.00-0.10) 10^3/uL Sodium 138 (136-145) mmol/L Potassium 4.4 (3.5-5.1) mmol/L Chloride 105 (98-107) mmol/L Carbon Dioxide 31.0 (21.0-32.0) mmol/L Anion Gap 6.4 BUN 20.0 H (7.0-18.0) mg/dL Creatinine 0.89 (0.70-1.30) mg/dL Est GFR ( Amer) >60 (>=60 mL/min/1.73m^2) Est GFR (Non-Af Amer) >60 (>=60 mL/min/1.73m^2) BUN/Creatinine Ratio 22.5 Glucose 119 H (74-106) mg/dL Calcium 8.8 (8.5-10.1) mg/dL Discharge Plan Discharge Chief Complaint: Nausea/Vomiting/Diarrhea Clinical Impression: Nausea Patient Disposition: Home, Self-Care Time of Disposition Decision: 12:18 Condition: Good Mode of Transportation: Private Vehicle Prescriptions / Home Meds: New ondansetron 4 mg tablet,disintegrating 4 mg PO Q6H PRN (Reason: nausea and vomiting) Qty: 20 0RF Print Language: Citizen Of [place] Instructions: Acute Nausea and Vomiting (ED) Referrals: Naomi Helm NP [Primary Care Provider] - 1 week
[2025-03-05] MEDS: 0.9 % SODIUM CHLORIDE 1,000 ML 1000 ML IV (11:27)
[2025-03-05] MEDS: ONDANSETRON PF 4 MG/2 ML VIAL IV (11:27)
[2025-03-05 11:54] LABS: Mean Corpuscular HGB Conc 34.1 g/dL (29.9-35.2); Mean Corpuscular Hemoglobin 30.5 pg (25.9-34.0); Mean Corpuscular Volume 89.6 fL (80.0-94.0); Mean Platelet Volume 10.2 fL (9.5-13.5); Platelet Count 207 10^3/uL (150-450); Red Blood Count 4.91 10^6/uL (4.70-6.10); Red Cell Distribution Width 12.8 % (11.0-15.0); White Blood Count 7.4 10^3/uL (4.0-11.0)
[2025-03-05 11:58] LABS: Segmented Neut Absolute Manual 5.77 10^3/uL (1.4-6.5)
[2025-03-05 11:59] LABS: Eosinophils Absolute Manual 0.37 10^3/uL (0.00-0.70); Lymphocytes Absolute Manual 0.81 10^3/uL (1.20-3.80); Monocytes Absolute Manual 0.44 10^3/uL (0.30-0.80)
[2025-03-05 12:03] LABS: Anion Gap 6.4; BUN Creatinine Ratio 22.5; Calcium 8.8 mg/dL (8.5-10.1); Chloride 105 mmol/L (98-107); Estimated GFR (African America >60 (>=60 mL/min/1.73m^2); Estimated GFR (Non-African Ame >60 (>=60 mL/min/1.73m^2); Glucose 119 mg/dL (74-106); Potassium 4.4 mmol/L (3.5-5.1); Sodium 138 mmol/L (136-145)
== END 2025-03-05 12:25 | disposition home or self-care (01) ==
PROVIDERS: Emergency Provider Emergency Medicine; PCP Nurse Practitioner Family
DX: R11.0 Nausea (principal)
CPT/HCPCS: 36415; 80048; 85007; 85027; 96374; 99285; J2405